=== PATIENT | female | born 1960 | race American Indian/Alaskan Native ===

== ENCOUNTER 2021-08-14 12:22 | Emergency (ER) | payer MEDICARE, MEDICAID, SELFPAY ==
--- NOTE | ~2021-08-14 | US_ITS ---
EXAMINATION: US VENOUS ULTRASOUND WITH DOPPLER LOWER EXTREMITY, BILATERAL CLINICAL INFORMATION: Shortness of breath and leg swelling. COMPARISON: 03/09/2015. TECHNIQUE: Ultrasound of the deep veins is performed from the hip to the calf with compression sonography and color and pulse Doppler assessment. Spectral analysis with color-flow imaging is performed. FINDINGS: RIGHT: There is normal venous compression and respiratory variation and augmented flow. The visualized common femoral vein, superficial femoral vein, profunda femoral vein, popliteal vein, and the trifurcation region shows no evidence of deep venous thrombosis. There is no significant popliteal fossa cyst. LEFT: There is normal venous compression and respiratory variation and augmented flow. The visualized common femoral vein, superficial femoral vein, profunda femoral vein, popliteal vein, and the trifurcation region shows no evidence of deep venous thrombosis. There is no significant popliteal fossa cyst. If the patient's symptoms persist, followup ultrasound in 5 days 7 days might be of value to exclude proximal propagation from a non-visualized calf vein. US/US venous duplex LE BI IMPRESSION: No DVT demonstrated in the bilateral lower extremities.
--- NOTE | ~2021-08-14 | XR_ITS ---
EXAMINATION: PORTABLE CHEST 1 VIEW CLINICAL INFORMATION: sob . COMPARISON: 10/20/2017. TECHNIQUE: Portable frontal view of the chest was obtained. FINDINGS: The lungs are hypoexpanded. Minimal left basilar markings more likely due to atelectasis. Otherwise no focal infiltrate, effusion, edema, or pneumothorax. Cardiac and mediastinal silhouettes are within normal limits for technique. No acute bony abnormality seen. Degenerative changes in the shoulders and spine. XR/XR chest 1V IMPRESSION: Hypoexpanded with basilar markings more likely due to atelectasis. No obvious acute process otherwise.
--- NOTE | ~2021-08-14 | CT_ITS ---
EXAMINATION: CT SOFT TISSUE NECK WITHOUT CONTRAST CLINICAL INFORMATION: Sore throat COMPARISON: None TECHNIQUE: Helical imaging was performed in the axial plane with generation of coronal and sagittal reformatted images. This CT examination was performed using dose optimization techniques as appropriate, variously including the following: *Automated exposure control *Adjustment of mA and/or kV according to patient size (this includes techniques or standardized protocols for targeted exams where dose is matched to indication/reason for exam; i.e. extremities or head) *Use of iterative reconstruction technique DLP: 595 mGy-cm FINDINGS: Limited exam. There are moderate sized abnormal bilateral neck lymph nodes. 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 In addition there is a prominent right level 3 and level 4 lymph nodes. Visualized bilateral parotid, submandibular glands are symmetrical and normal. The thyroid lobes are symmetrical and normal. There is compromise of these cervical esophagus from the retropharyngeal mass. The bony orbits and the optic globe and optic nerve are symmetrical. No intracranial abnormality seen. There is mild mucoperiosteal thickening left maxillary sinus. Rest of the paranasal sinuses are clear. The lung apices are clear. There is reversal of cervical lordosis secondary to retropharyngeal mass. The the oropharynx, oral cavity the adenoids and tonsils appear unremarkable. CT/CT soft tissue neck wo con IMPRESSION: Reversal of cervical lordosis with a moderate size retroperitoneal or pharyngeal mass extending from C3 to T1 vertebra. There is abnormal right neck lymphadenopathy as well. There is a compromise of the cervical esophagus secondary to retropharyngeal mass. Recommend CT neck with IV contrast and better positioning for further evaluation. If clinically indicated MRI can be performed.
--- NOTE | ~2021-08-14 | CT_ITS ---
EXAMINATION: CT ANGIOGRAM OF THE CHEST WITH AND WITHOUT CONTRAST (CT PULMONARY ANGIOGRAM FOR PE) CLINICAL INFORMATION: SOB, chest pain, elevated D-dimer. COMPARISON: None TECHNIQUE: Prior to contrast administration, noncontrast localization images were obtained. Subsequently, multidetector volumetric imaging was performed from the thoracic inlet to below the diaphragms following the administration of 85 mL Omnipaque 350 intravenous contrast. The IV line infiltrated and leaked. Sagittal, coronal, and MIP oblique sagittal reformatted images were obtained on the CT workstation, uploaded to PACS, and reviewed. This CT examination was performed using dose optimization techniques as appropriate, variously including the following: *Automated exposure control *Adjustment of mA and/or kV according to patient size (this includes techniques or standardized protocols for targeted exams where dose is matched to indication/reason for exam; i.e. extremities or head) *Use of iterative reconstruction technique Total exam dose-length product 851 mGy-cm FINDINGS: QUALITY OF STUDY/CONTRAST BOLUS: Suboptimal. PULMONARY ARTERIES: No central pulmonary emboli, however evaluation of the segmental and subsegmental branches is severely limited due to infiltration of the IV line and timing of the contrast bolus. THORACIC AORTA: No aneurysm or dissection. LUNG: No focal consolidation, nodules or masses. There is dependent atelectasis at the bilateral lung bases. There is motion artifact at the lung bases from breathing. PLEURA: No pleural effusion or pneumothorax. MEDIASTINUM: Normal heart size. No pericardial effusion. No hilar or mediastinal lymphadenopathy. No evidence of septal bowing or right heart strain. CHEST WALL/AXILLA: No axillary or internal mammary lymphadenopathy. OSSEOUS STRUCTURES: No acute or suspicious osseous abnormality. UPPER ABDOMEN: Unremarkable. No reflux of contrast into the hepatic veins to suggest elevated right heart pressures. CT/CT angio chest PE protocol IMPRESSION: No central pulmonary embolus. Evaluation of the segmental and subsegmental branches is nondiagnostic due to infiltration of the IV line and timing of the contrast bolus. If concern persists for pulmonary embolism, consider repeat imaging. No consolidation, mass, or nodule. Some mild dependent atelectasis at the lung bases. VTE: indeterminate
--- NOTE | ~2021-08-14 | CT_ITS ---
EXAMINATION: CT ABDOMEN AND PELVIS WITHOUT CONTRAST CLINICAL INFORMATION: Abdominal pain. COMPARISON: None TECHNIQUE: Multidetector volumetric imaging was performed from the superior aspect of the liver through the pubic symphysis. Sagittal and coronal reformatted images were obtained on the technologist's workstation. This CT examination was performed using dose optimization techniques as appropriate, variously including the following: *Automated exposure control *Adjustment of mA and/or kV according to patient size (this includes techniques or standardized protocols for targeted exams where dose is matched to indication/reason for exam; i.e. extremities or head) *Use of iterative reconstruction technique DLP: 806 mGy-cm FINDINGS: LUNG BASES: There is minimal dependent atelectasis and posterior pleural thickening. The heart size is normal. LIVER, GALLBLADDER, AND BILIARY TREE: The liver is normal in size, shape, and attenuation. No focal hepatic lesion or biliary ductal dilatation is present. The gallbladder is unremarkable with no evidence of radiopaque gallstones, gallbladder wall thickening, or obvious pericholecystic inflammatory changes. PANCREAS: Unremarkable. SPLEEN: Unremarkable. ADRENAL GLANDS: Unremarkable. KIDNEYS AND URETERS: The kidneys are normal in size, shape, and attenuation. No hydronephrosis, hydroureter, or calculi seen. No perinephric stranding. There is contrast opacifying bilateral pelvicalyceal system. BLADDER: The bladder is opacified with excreted urinary contrast.. GASTROINTESTINAL TRACT: There is scattered stool and gas seen throughout the colon without significant distention. The small bowel loops are normal caliber. Appendix is unremarkable. No free air or free fluid seen. ABDOMINAL WALL: No significant hernia is appreciated. LYMPH NODES: Normal. VASCULAR: Unremarkable. PELVIC VISCERA: Limited evaluation secondary to bilateral hip prosthesis related artifact. No abnormal lymph nodes seen. OSSEOUS STRUCTURES: Unremarkable CT/CT abdomen pelvis wo con IMPRESSION: No acute intra-abdominal process seen. Bibasilar dependent atelectasis with bilateral posterior pleural thickening. Fleischner guidelines were followed.
[2021-08-14 12:48] VITALS: BP 105/71; PULSE 130; RESP 22; TEMP 38.3; O2SAT 95; BMI 35.4
--- NOTE | 2021-08-14 13:40 | ECG_ITS ---
Test Reason : chestpain Blood Pressure : / mmHG Vent. Rate : 120 BPM Atrial Rate : 120 BPM P-R Int : 134 ms QRS Dur : 076 ms QT Int : 298 ms P-R-T Axes : 056 003 034 degrees QTc Int : 421 ms Sinus tachycardia Otherwise normal ECG When compared with ECG of 09-SEP-2017 14:52, Vent. rate has increased BY 51 BPM Referred By: Karl Coates Electronically Signed By:PERLA JONES MD
[2021-08-14 13:53] LABS: Hematocrit 41.8 % (37.0-47.0); Hemoglobin 14.8 g/dl (12.0-16.0); Mean Corpuscular HGB Conc 35.4 g/dl (31.0-35.0); Mean Corpuscular Hemoglobin 28.2 pg (27.0-33.0); Mean Corpuscular Volume 79.6 fL (80.0-98.0); Mean Platelet Volume 10.7 fL (9.4-12.3); Platelet Count 229 X10*3/uL (160-400); Red Blood Count 5.25 X10*6/uL (4.20-5.50); Red Cell Distribution Width 15.6 % (11.0-16.0)
[2021-08-14 14:00] LABS: D Dimer High Sensitivity 2526 NG/ML
[2021-08-14 14:11] LABS: White Blood Count 51.8 X10*3/uL (4.8-10.8)
[2021-08-14 14:12] LABS: Strep A Nucleic Acid Negative (Negative)
[2021-08-14 14:13] LABS: Alanine Aminotransferase 10 U/L (0-31); Albumin Level 3.8 g/dL (3.5-5.0); Alkaline Phosphatase 110 U/L (39-117); Anion Gap 20 (12-20); Aspartate Amino Transferase 21 U/L (5-31); Bilirubin Direct 0.8 mg/dL (0.0-0.5); Bilirubin Total 1.6 mg/dL (0.0-1.0); Blood Urea Nitrogen 12 mg/dL (9-16); Calcium 9.4 mg/dL (8.4-10.2); Carbon Dioxide 22 mmol/L (22-29); Chloride 101 mmol/L (96-108); Creatinine Clr Calc Pharmacy 73.4; Estimated Glomerular Filt Rate > 60; Glucose Random 87 mg/dL (60-115); Lipase 9 U/L (8-78); Potassium 3.7 mmol/L (3.3-5.1); Sodium 139 mmol/L (135-145); Total Protein 7.2 g/dL (6.5-8.0)
[2021-08-14 14:14] LABS: Lactic Acid 2.2 mmol/L (0.5-2.0)
[2021-08-14 14:15] LABS: Band Neutrophils Percent 24 % (3-5); Lymphocytes Absolute Manual 2.1 X10*3/uL (1.2-4.9); Lymphocytes Percent Manual 4 % (20-40); Monocytes Percent Manual 2 % (2-11); Neutrophils Absolute Manual 48.7 X10*3/uL (2.0-8.3); Neutrophils Percent Manual 70 % (45-73)
[2021-08-14 14:19] LABS: B Type Natriuretic Peptide 129 pg/mL (<100); Microcytosis 1+ (5-14) /OIF; Platelet Estimate NORMAL (NORMAL); Platelet Morphology Comment NORMAL; RBC Morphology NOTED; Troponin-I High Sensitivity 8.7 ng/L (<3.5-17.0)
[2021-08-14 14:20] LABS: Toxic Vacuolation PRESENT
[2021-08-14] MEDS: levoFLOXacin/D5W 750 MG/150 ML PIGGYBACK 100 MG IV (14:44)
[2021-08-14 14:45] LABS: Influenza A PCR NEGATIVE (Negative); Influenza B PCR NEGATIVE (Negative); Resp Syncy Virus RNA Qual PCR NEGATIVE (Negative); SARS COV2 PCR INHOUSE NEGATIVE (Negative)
[2021-08-14] MEDS: iohexoL 350 MG/ML 100 ML INFUS..BTL 70 ML IV (15:37)
--- NOTE | 2021-08-14 15:52 | ED_ITS ---
HPI - General Adult General Chief complaint: Dyspnea Stated complaint: Leg pain/SOB/Sore throat Time Seen by Provider: 08/14/21 13:39 Source: patient Mode of arrival: ambulatory Limitations: no limitations History of Present Illness HPI narrative: 61-year-old female came in for evaluation of having chest pain and shortness of breath. Chest pain started 2 days ago described as constant moderate 7/10 pain in the mid chest with no radiation, pain is causing shortness of breath, patient's symptoms started as a sore throat and change of voice, patient with chronic bilateral lower extremities swelling and edema taking Lasix for that patient never had a diagnosis of congestive heart failure. Patient declined any recent travel, no prolonged immobilization, no subjective fever. No sick contact, patient received her COVID vaccination. Related Data Allergies Allergy/AdvReac Type Severity Reaction Status Date / Time citric acid [CITRIC ACID] Allergy Mild RASH Unverified 02/20/20 16:23 penicillin V Allergy Unknown Verified 07/30/18 00:00 Penicillins [PCN] Allergy Unknown NAUSEA & Unverified 02/20/20 16:23 VOMITING Review of Systems Review of Systems: All other systems are reviewed and are negative Constitutional: Reports as per HPI and Reports no additional constitutional complaints Eyes: Reports as per HPI and Reports no additional eye complaints Reports system reviewed and no additional complaints, except as documented Cardiovascular: Reports as per HPI and Reports no additional cardiovascular complaints Respiratory: Reports as per HPI and Reports no additional respiratory complaints Gastrointestinal: Reports as per HPI and Reports no additional gastrointestinal complaints Genitourinary: Reports no additional female genitourinary complaints Musculoskeletal: Reports no additional musculoskeletal complaints Skin/Breast: Reports system reviewed and no additional complaints, except as docu Psychiatric: Reports no additional psychiatric complaints Endocrine: Reports no additional endocrine complaints Hematologic/Lymphatic: Reports no additional hematologic/lymphatic complaints Allergic/Immunologic: Reports no additional allergic/immunologic complaints Reports system reviewed and no additional complaints, except as documented and Reports Abnormal speech present [facility] Past Medical History Medical History Fluid retention Social History Social History Advance Directives: No Advance Directives Information Provided: No Patient : No Physical Exam ED Vital Signs: Vital Signs - 24 hr 08/14/21 12:48 08/14/21 16:15 Temperature 101 F H Pulse Rate 130 H 127 H Respiratory Rate 22 H 22 H Blood Pressure 105/71 143/89 H Pulse Oximetry 95 93 BMI result Body Mass Index 35.4 Vital signs have been reviewed as appeared to be correct. Blood pressure normal. Tachycardic. Tachypnea. Fever. Oxygen saturation normal. Appearance: Alert. Oriented X3. Mild acute distress. Head: Normal external exam. Normocephalic. Atraumatic. No Crowley signs noted. No raccoon eyes noted Eyes: PERRLA. EOMI. Conjunctiva and sclera normal. Eyelids normal. ENT: TM's Normal. Pharynx normal. Uvula midline. Moist mucous membranes. No trismus noted. No drooling noted. No muffled voice noted. Neck: Normal inspection. Neck supple. FROM. No adenopathy. Thyroid Normal. No meningeal signs. No neck mass noted. CVS: Normal heart rate and rhythm. Heart sound normal. No murmurs noted. Pulses normal throughout. Respiratory: No respiratory distress. Painless inspiration. Breath sounds normal. No wheezes/rales/rhonchi noted. Chest nontender. No accessory muscle usage noted or decreased air movement noted. Abdomen: Soft and nontender. Bowel sounds normal in all 4 quadrants. No distention noted. No organomegaly noted. No visible injury noted. Back: No CVA tenderness. Full range of motion noted. Skin: Skin warm and dry. Normal skin color. Normal skin turgor. No rashes/lesions/lacerations noted. Extremities: No lower extremity edema. Extremities exhibit normal range of motion. Extremities nontender. Neuro: Oriented X 3. Cranial nerve exam: II-XII are grossly intact No motor deficit. No sensory deficit. Reflexes normal. Course Course Course Narrative: Signed out to Dr. Mayberry to check on labs/CT of the chest/UA and dispo patient accordingly likely patient will be admitted Medical Decision Making Lab Data Result diagrams: 08/14/21 13:47 08/14/21 13:47 Labs: Lab Results 08/14/21 08/14/21 08/14/21 Range/Units 13:46 13:46 13:47 WBC 51.8 H* (4.8-10.8) X10*3/uL RBC 5.25 (4.20-5.50) X10*6/uL Hgb 14.8 (12.0-16.0) g/dl Hct 41.8 (37.0-47.0) % MCV 79.6 L (80.0-98.0) fL MCH 28.2 (27.0-33.0) pg MCHC 35.4 H (31.0-35.0) g/dl RDW 15.6 (11.0-16.0) % Plt Count 229 (160-400) X10*3/uL MPV 10.7 (9.4-12.3) fL Immature Gran % (Auto) Cancelled Neut % (Auto) Cancelled Lymph % (Auto) Cancelled Saunders % (Auto) Cancelled Eos % (Auto) Cancelled Baso % (Auto) Cancelled Lymph # (Auto) Cancelled Saunders # (Auto) Cancelled Eos # (Auto) Cancelled Baso # (Auto) Cancelled Abs Immat Gran (auto) Cancelled Absolute Neuts (auto) Cancelled Absolute Nucleated RBC 0.000 (0.0-0.012) X10*3/uL Nucleated RBC % (auto) 0.0 (0.0-0.2) /100WBC Neutrophils % (Manual) 70 (45-73) % Band Neutrophils % 24 H (3-5) % Lymphocytes % (Manual) 4 L (20-40) % Monocytes % (Manual) 2 (2-11) % Abs Neuts (Manual) 48.7 H (2.0-8.3) X10*3/uL Lymphocytes # (Manual) 2.1 (1.2-4.9) X10*3/uL Monocytes # (Manual) 1.0 (0.1-1.2) X10*3/uL Toxic Vacuolation PRESENT Platelet Estimate NORMAL (NORMAL) Plt Morphology Comment NORMAL RBC Morphology NOTED Microcytosis 1+ (5-14) /OIF Smear Tech's Comments Not Reportable D-Dimer High Sensitivty NG/ML Sodium (135-145) mmol/L Potassium (3.3-5.1) mmol/L Chloride (96-108) mmol/L Carbon Dioxide (22-29) mmol/L Anion Gap (12-20) BUN (9-16) mg/dL Creatinine (0.5-1.4) mg/dL Estim Creat Clear Calc Estimated GFR Random Glucose (60-115) mg/dL Lactic Acid (0.5-2.0) mmol/L Calcium (8.4-10.2) mg/dL Total Bilirubin (0.0-1.0) mg/dL Direct Bilirubin (0.0-0.5) mg/dL AST (5-31) U/L ALT (0-31) U/L Alkaline Phosphatase (39-117) U/L Troponin I High Sens (<3.5-17.0) ng/L B-Natriuretic Peptide (<100) pg/mL Total Protein (6.5-8.0) g/dL Albumin (3.5-5.0) g/dL Lipase (8-78) U/L Influenza Type A (PCR) NEGATIVE (Negative) Influenza Type B (PCR) NEGATIVE (Negative) RSV RNA Qual (PCR) NEGATIVE (Negative) SARS-CoV-2 RNA (RT-PCR) NEGATIVE (Negative) S. pyogenes GrpA DOMINIQUE Negative (Negative) 08/14/21 08/14/21 08/14/21 Range/Units 13:47 13:47 13:47 WBC (4.8-10.8) X10*3/uL RBC (4.20-5.50) X10*6/uL Hgb (12.0-16.0) g/dl Hct (37.0-47.0) % MCV (80.0-98.0) fL MCH (27.0-33.0) pg MCHC (31.0-35.0) g/dl RDW (11.0-16.0) % Plt Count (160-400) X10*3/uL MPV (9.4-12.3) fL Immature Gran % (Auto) Neut % (Auto) Lymph % (Auto) Saunders % (Auto) Eos % (Auto) Baso % (Auto) Lymph # (Auto) Saunders # (Auto) Eos # (Auto) Baso # (Auto) Abs Immat Gran (auto) Absolute Neuts (auto) Absolute Nucleated RBC (0.0-0.012) X10*3/uL Nucleated RBC % (auto) (0.0-0.2) /100WBC Neutrophils % (Manual) (45-73) % Band Neutrophils % (3-5) % Lymphocytes % (Manual) (20-40) % Monocytes % (Manual) (2-11) % Abs Neuts (Manual) (2.0-8.3) X10*3/uL Lymphocytes # (Manual) (1.2-4.9) X10*3/uL Monocytes # (Manual) (0.1-1.2) X10*3/uL Toxic Vacuolation Platelet Estimate (NORMAL) Plt Morphology Comment RBC Morphology Microcytosis /OIF Smear Tech's Comments D-Dimer High Sensitivty NG/ML Sodium 139 (135-145) mmol/L Potassium 3.7 (3.3-5.1) mmol/L Chloride 101 (96-108) mmol/L Carbon Dioxide 22 (22-29) mmol/L Anion Gap 20 (12-20) BUN 12 (9-16) mg/dL Creatinine 0.85 (0.5-1.4) mg/dL Estim Creat Clear Calc 73.4 Estimated GFR > 60 Random Glucose 87 (60-115) mg/dL Lactic Acid 2.2 H* (0.5-2.0) mmol/L Calcium 9.4 (8.4-10.2) mg/dL Total Bilirubin 1.6 H (0.0-1.0) mg/dL Direct Bilirubin 0.8 H (0.0-0.5) mg/dL AST 21 (5-31) U/L ALT 10 (0-31) U/L Alkaline Phosphatase 110 (39-117) U/L Troponin I High Sens 8.7 (<3.5-17.0) ng/L B-Natriuretic Peptide 129 H (<100) pg/mL Total Protein 7.2 (6.5-8.0) g/dL Albumin 3.8 (3.5-5.0) g/dL Lipase 9 (8-78) U/L Influenza Type A (PCR) (Negative) Influenza Type B (PCR) (Negative) RSV RNA Qual (PCR) (Negative) SARS-CoV-2 RNA (RT-PCR) (Negative) S. pyogenes GrpA DOMINIQUE (Negative) 08/14/21 Range/Units 13:47 WBC (4.8-10.8) X10*3/uL RBC (4.20-5.50) X10*6/uL Hgb (12.0-16.0) g/dl Hct (37.0-47.0) % MCV (80.0-98.0) fL MCH (27.0-33.0) pg MCHC (31.0-35.0) g/dl RDW (11.0-16.0) % Plt Count (160-400) X10*3/uL MPV (9.4-12.3) fL Immature Gran % (Auto) Neut % (Auto) Lymph % (Auto) Saunders % (Auto) Eos % (Auto) Baso % (Auto) Lymph # (Auto) Saunders # (Auto) Eos # (Auto) Baso # (Auto) Abs Immat Gran (auto) Absolute Neuts (auto) Absolute Nucleated RBC (0.0-0.012) X10*3/uL Nucleated RBC % (auto) (0.0-0.2) /100WBC Neutrophils % (Manual) (45-73) % Band Neutrophils % (3-5) % Lymphocytes % (Manual) (20-40) % Monocytes % (Manual) (2-11) % Abs Neuts (Manual) (2.0-8.3) X10*3/uL Lymphocytes # (Manual) (1.2-4.9) X10*3/uL Monocytes # (Manual) (0.1-1.2) X10*3/uL Toxic Vacuolation Platelet Estimate (NORMAL) Plt Morphology Comment RBC Morphology Microcytosis /OIF Smear Tech's Comments D-Dimer High Sensitivty 2526 NG/ML Sodium (135-145) mmol/L Potassium (3.3-5.1) mmol/L Chloride (96-108) mmol/L Carbon Dioxide (22-29) mmol/L Anion Gap (12-20) BUN (9-16) mg/dL Creatinine (0.5-1.4) mg/dL Estim Creat Clear Calc Estimated GFR Random Glucose (60-115) mg/dL Lactic Acid (0.5-2.0) mmol/L Calcium (8.4-10.2) mg/dL Total Bilirubin (0.0-1.0) mg/dL Direct Bilirubin (0.0-0.5) mg/dL AST (5-31) U/L ALT (0-31) U/L Alkaline Phosphatase (39-117) U/L Troponin I High Sens (<3.5-17.0) ng/L B-Natriuretic Peptide (<100) pg/mL Total Protein (6.5-8.0) g/dL Albumin (3.5-5.0) g/dL Lipase (8-78) U/L Influenza Type A (PCR) (Negative) Influenza Type B (PCR) (Negative) RSV RNA Qual (PCR) (Negative) SARS-CoV-2 RNA (RT-PCR) (Negative) S. pyogenes GrpA DOMINIQUE (Negative) Discharge Plan Discharge Clinical Impression: Chest pain
[2021-08-14 15:59] LABS: Reflex Lactate? Lactic Acid Added
[2021-08-14 16:15] VITALS: BP 143/89; PULSE 127; RESP 22; O2SAT 93
[2021-08-14 17:17] LABS: Appearance Urine HAZY; Color Urine YELLOW; Glucose Urine UA NEG (NEG); Leukocyte Esterase Urine NEG (NEG); Nitrite Urine NEG (NEG); Specific Gravity - Urine 1.015 (1.005-1.025); UACC Culture Trigger NO; Urine Blood 1+ (NEG); Urine Ketones 40 MG/DL (NEG); Urine Protein 2+ MG/DL (NEG-TRACE)
[2021-08-14 17:27] LABS: Bacteria Urine TRACE /LPF; Mucus Urine TRACE /LPF; Squamous Epithelial Cell Urine 1+ /LPF
[2021-08-14 17:41] LABS: ~Lactic Acid-LAB USE ONLY 2.2 mmol/L (0.5-2.0)
[2021-08-14] MEDS: HYDROmorphone HCl 0.5 MG/0.5 ML SYRINGE IVPUSH (17:52)
[2021-08-14 19:08] LABS: Reflex Lactate? 2 Y
[2021-08-14 19:19] VITALS: BP 120/56; PULSE 129; RESP 20; TEMP 38.2; O2SAT 97
[2021-08-14 19:57] LABS: ~Lactic Acid-LAB USE ONLY 1.2 mmol/L (0.5-2.0)
--- NOTE | 2021-08-14 20:45 | PC.NURSE ---
report called to [facility] at this time. spoke to ALEKSANDER escobedo. patient transfered via ambulance at this time. patient in stable condition on departure. patient voice noted to still be horse. patient pain controlled prior to departure, denies any needs. daughter informed of plan.
== END 2021-08-14 21:15 | disposition short-term general hospital (02) ==
PROVIDERS: Emergency Medicine; Emergency Provider Emergency Medicine Emergency Medical Services; PCP Internal Medicine
DX: J39.0 Retropharyngeal and parapharyngeal abscess (principal); R50.9 Fever, unspecified; R06.02 Shortness of breath; Z20.822 Contact with and (suspected) exposure to COVID-19
CPT/HCPCS: 0241U; 36415; 70490; 71045; 71275; 74176; 80048; 80076; 81001; 83605; 83690; 83880; 84484; 85007; 85025; 85027; 85379; 87040; 87651; 93005; 93970; 96361; 96365; 96375; 99284; 99291; J1170; J1956; Q9967

== ENCOUNTER 2023-04-22 13:54 | Emergency (ER) | payer MEDICAID, SELFPAY ==
--- NOTE | ~2023-04-22 | US_ITS ---
EXAMINATION: US PELVIS CLINICAL INFORMATION: Abnormal vaginal bleeding. COMPARISON: CT abdomen pelvis 08/14/2021. TECHNIQUE: Ultrasound of the pelvis is performed using both transabdominal and transvaginal transducers along with Doppler. Transvaginal imaging is performed due to inadequate visualization transabdominally. FINDINGS: Multiple echogenic foci are present within the urinary bladder which demonstrates moderate distention. The uterus measures 4.19 x 2.2 cm x 2.6 cm and is anteverted, anteflexed. The endometrial echo complex is suboptimally visualized but appears to measure 0.2 cm in width. Calcification is present in the region of the cervix resulting in posterior acoustic shadowing partially obscuring visualization of the uterus and endometrial echo complex. There is calcification measures approximately 0.5 mm in width. Partial visualization is made of small quantity of hypoechoic fluid within the endometrial cavity with the fluid collection measuring 1.5 mm in width. The ovaries are not visualized. No free intraperitoneal fluid collections identified. US/US pelvic and transvaginal IMPRESSION: *Suboptimal sonographic evaluation of the uterus secondary to dystrophic calcification the region of the cervix. The calcification is indeterminate in etiology but may represent partial visualization of a lower uterine segment fibroid or dystrophic calcification intrinsic to the cervix. This finding is without a definitive correlate based on contemporaneous review of the 08/14/2021 CT of the abdomen and pelvis. *Small endometrial cavity fluid collection measuring 1.5 mm in width. The endometrium is suboptimally visualized. No gross endometrial thickening or endometrial lesions identified. *The ovaries are not visualized. *Multiple echogenic foci within the urinary bladder which may represent pyuria in the setting of pyelonephritis/cystitis. *Atrophic uterus.
[2023-04-22 14:39] VITALS: BP 118/70; PULSE 81; RESP 18; TEMP 36.7; O2SAT 97; BMI 31.8
--- NOTE | 2023-04-22 14:40 | ED_ITS ---
[facility] - General Adult General Chief complaint: Vaginal Bleeding Stated complaint: vaginal bleeding Time Seen by Provider: 04/22/23 15:54 Source: patient Mode of arrival: ambulatory History of Present Illness HPI narrative: 62-year-old female who presents with 1 week of vaginal bleeding and as per triage note apparently patient stated it was 2 weeks ago that she had the inciting event which was post coital. Patient reports urinary urgency. Related Data Allergies Allergy/AdvReac Type Severity Reaction Status Date / Time citric acid [CITRIC ACID] Allergy Mild RASH Verified 04/22/23 14:43 penicillin V Allergy Unknown Nausea and Verified 04/22/23 14:43 Vomiting Penicillins [PCN] Allergy Unknown NAUSEA & Verified 04/22/23 14:43 VOMITING Review of Systems 2 Review of Systems: Pertinent positives and negatives as stated in [facility] Past Medical History Source: nursing notes reviewed Medical History Fluid retention Social History Social History Smoked in Last 30 Days: No Use of substances other than those prescribed or required for medical reasons: No Advance Directives: No Advance Directives Information Provided: No Physical Exam ED Vital Signs: Vital Signs - 24 hr 04/22/23 14:39 04/22/23 15:28 Temperature 98.0 F Pulse Rate 81 74 Respiratory Rate 18 16 Blood Pressure 118/70 Pulse Oximetry 97 97 Oxygen Delivery Method Room Air Room Air BMI result Body Mass Index 31.8 VITAL SIGNS: Reviewed. GENERAL: Well developed, well nourished, in no acute distress. HEAD: Normocephalic/atraumatic EYES: PERRLA, EOMI EARS: Ext canals without abnormality NOSE: Nares patent bilateral OROPHARYNX: no oral lesions noted, posterior pharynx clear NECK: Supple, no adenopathy LUNGS: Normal breath sounds. No adventitious sounds or accessory muscle use. SpO2<97> CARDIOVASCULAR: Regular rate and rhythm without noted murmurs ABDOMEN: Soft, non-tender, non-distended with bowel sounds. : Pelvic exam demonstrates a trace amount of dark brown fluid within the posterior fornix, despite changing position difficulty with identifying the cervical office but otherwise no gross masses noted within the vaginal vault. MUSCULOSKELETAL: No tenderness, deformities, or effusions noted on gross inspection. EXTREMITIES: No cyanosis, clubbing or edema. SKIN: Inspection of the skin reveals no rashes NEUROLOGIC: Alert and oriented x 4. Strength and sensation to light touch were grossly intact x 4. Course Course Course Narrative: This is an RME: Additional HPI, ROS, PE not included below will be deferred to primary provider. This is a [id number]-female presenting to the ER with complaints of abnormal vaginal bleeding, dysuria. Pt states that initially she had bleeding after intercourse 2 weeks ago. She has now had pelvic pressure. Hx of ?cerivcal cancer as a teenager and went through tx. Last saw OBGYN 5 years ago. LMP at age 51- 52. She is sexually active with 1 partner. Further ER evaluation needed. Plan: UA, Labs, US Medical Decision Making Medical Decision Making [facility] Narrative: 62-year-old female with history and clinical presentation consistent with postmenopausal vaginal bleeding of unclear significance. On pelvic exam there is no gross hemorrhage ongoing. I reviewed all investigations and hematologic indices demonstrate a stress leukocytosis without anemia or thrombocytopenia. Chemistry and sees negative for evidence of TRACY her electrolytes/liver enzyme abnormalities. Urinalysis demonstrates blood contamination from the vaginal vault and do not suspect an acute urinary tract infection. Endometrium is 0.2 cm but ultrasound read is suboptimal and does not clearly indicate suggestion of endometrial thickening, there is equivocal calcifications involving the cervix. All results and findings were discussed with the patient at bedside. 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 Differential Diagnosis Differential Diagnoses: The differential diagnosis associated with the presentation includes Please see the discussion above Admission/Observation Consideration of admission/observation: Escalation of care including admission/observation considered Please see the discussion above Lab Data [facility] Lab Attestation statement: I reviewed the patient's lab results. Please see the discussion above 04/22/23 15:18 04/22/23 15:18 Labs: Lab Results 04/22/23 04/22/23 Range/Units 14:52 15:18 WBC 11.9 H (4.8-10.8) X10*3/uL RBC 4.78 (4.20-5.50) X10*6/uL Hgb 14.0 (12.0-16.0) g/dl Hct 39.5 (37.0-47.0) % MCV 82.6 (80.0-98.0) fL MCH 29.3 (27.0-33.0) pg MCHC 35.4 H (31.0-35.0) g/dl RDW 13.8 (11.0-16.0) % Plt Count 273 (160-400) X10*3/uL MPV 10.2 (9.4-12.3) fL Immature Gran % (Auto) 0.3 (0.0-0.4) % Neut % (Auto) 63.5 (45-73) % Lymph % (Auto) 31.4 (20-40) % [place] % (Auto) 4.0 (2-11) % Eos % (Auto) 0.4 (0-4) % Baso % (Auto) 0.4 (0-2) % Lymph # (Auto) 3.7 (1.2-4.9) X10*3/uL [place] # (Auto) 0.5 (0.1-1.2) X10*3/uL Eos # (Auto) 0.1 (0.0-0.4) X10*3/uL Baso # (Auto) 0.1 (0.0-0.2) X10*3/uL Abs Immat Gran (auto) 0.03 (0.00-0.03) X10*3/uL Absolute Neuts (auto) 7.5 (2.0-8.3) x10*3/uL Absolute Nucleated RBC 0.000 (0.0-0.012) X10*3/uL Nucleated RBC % (auto) 0.0 (0.0-0.2) /100WBC Sodium 141 (135-145) mmol/L Potassium 4.8 D (3.3-5.1) mmol/L Chloride 106 (96-108) mmol/L Carbon Dioxide 29 (22-29) mmol/L Anion Gap 11 L (12-20) BUN 9 (9-16) mg/dL Creatinine 0.90 (0.5-1.4) mg/dL Estim Creat Clear Calc 64.6 Estimated GFR > 60 Random Glucose 108 (60-115) mg/dL Calcium 9.5 (8.4-10.2) mg/dL Total Bilirubin 0.5 (0.0-1.0) mg/dL Direct Bilirubin 0.2 (0.0-0.5) mg/dL AST 23 (5-31) U/L ALT 14 (0-31) U/L Alkaline Phosphatase 76 (39-117) U/L Total Protein 6.9 (6.5-8.0) g/dL Albumin 3.8 (3.5-5.0) g/dL Urine Color Yellow Urine Appearance Cloudy Urine pH 8.5 (5.0-9.0) Ur Specific [place] 1.010 (1.005-1.025) Urine Protein Trace (Neg-Trace) mg/dL Urine Glucose (UA) Negative (Negative) mg/dL Urine Ketones Negative (Negative) mg/dL Urine Blood Trace H (Negative) Urine Nitrite Negative (Negative) Ur Leukocyte Esterase Large (3+) H (Negative) Urine RBC 0-2 (0-2) /HPF Urine WBC >50 H (0-5) /HPF Ur Squamous Epith Cells 6-10 (0-2) /HPF Urine Bacteria 2+ (None Seen) Hyaline Casts 0-2 (0-2) /LPF Radiology Impression Discussion of test interpretation with radiology: I have reviewed the radiologist's reading. Radiologist Impression: Please see the discussion above External Record Review External record reviewed: Outpatient record, Prior outpatient labs and Prior outpatient radiology Discharge Plan Discharge Clinical Impression: Post-menopausal bleeding Patient Disposition: Home, Self-Care Instructions: Dysfunctional Uterine Bleeding (ED) Additional Instructions: 1. 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
[2023-04-22 14:59] LABS: Appearance Urine Cloudy; Color Urine Yellow; Glucose Urine UA Negative (Negative); Leukocyte Esterase Urine Large (3+) (Negative); Nitrite Urine Negative (Negative); PH 8.5 (5.0-9.0); UMIC TRIGGER UACC YES; Urine Blood Trace (Negative); Urine Ketones Negative (Negative); Urine Protein Trace mg/dL (Neg-Trace)
[2023-04-22 15:21] LABS: MANUAL DIFF FLAG NO
[2023-04-22 15:24] LABS: Bacteria Urine 2+ (None Seen); Hyaline Casts Urine 0-2 /LPF (0-2); RBC Urine 0-2 /HPF (0-2); UACC Culture Trigger YES; WBC Urine >50 /HPF (0-5)
[2023-04-22 15:25] LABS: Basophils Absolute Auto 0.1 X10*3/uL (0.0-0.2); Basophils Percent Auto 0.4 % (0-2); Eosinophils Absolute Auto 0.1 X10*3/uL (0.0-0.4); Eosinophils Percent Auto 0.4 % (0-4); Hematocrit 39.5 % (37.0-47.0); Imm Gran Abs Auto 0.03 X10*3/uL (0.00-0.03); Imm Gran Pct Auto 0.3 % (0.0-0.4); Lymphocytes Absolute Auto 3.7 X10*3/uL (1.2-4.9); Lymphocytes Percent Auto 31.4 % (20-40); Mean Corpuscular HGB Conc 35.4 g/dl (31.0-35.0); Mean Corpuscular Hemoglobin 29.3 pg (27.0-33.0); Mean Corpuscular Volume 82.6 fL (80.0-98.0); Mean Platelet Volume 10.2 fL (9.4-12.3); Monocytes Absolute Auto 0.5 X10*3/uL (0.1-1.2); Neutrophils Absolute Auto 7.5 x10*3/uL (2.0-8.3); Neutrophils Percent Auto 63.5 % (45-73); Platelet Count 273 X10*3/uL (160-400); Red Blood Count 4.78 X10*6/uL (4.20-5.50); Red Cell Distribution Width 13.8 % (11.0-16.0); White Blood Count 11.9 X10*3/uL (4.8-10.8)
[2023-04-22 15:28] VITALS: PULSE 74; RESP 16; O2SAT 97
--- NOTE | 2023-04-22 15:31 | PC.NURSE ---
Patient resting on stretcher, respirations even and unlabored, skin pwd, no apparent distress. Patient endorses bright red vaginal bleeding occurring in small amounts every day x1 week. patient also endorses pressure in the vaginal area as well as urinary frequency
[2023-04-22 15:44] LABS: Alanine Aminotransferase 14 U/L (0-31); Albumin Level 3.8 g/dL (3.5-5.0); Alkaline Phosphatase 76 U/L (39-117); Anion Gap 11 (12-20); Aspartate Amino Transferase 23 U/L (5-31); Bilirubin Direct 0.2 mg/dL (0.0-0.5); Bilirubin Total 0.5 mg/dL (0.0-1.0); Blood Urea Nitrogen 9 mg/dL (9-16); Calcium 9.5 mg/dL (8.4-10.2); Carbon Dioxide 29 mmol/L (22-29); Chloride 106 mmol/L (96-108); Creatinine Clr Calc Pharmacy 64.6; Estimated Glomerular Filt Rate > 60; Glucose Random 108 mg/dL (60-115); Potassium 4.8 mmol/L (3.3-5.1); Sodium 141 mmol/L (135-145); Total Protein 6.9 g/dL (6.5-8.0)
[2023-04-22 19:43] VITALS: BP 122/71; PULSE 65; RESP 18; TEMP 36.6; O2SAT 99
--- NOTE | 2023-04-22 19:44 | MHC.EDTECH ---
This tech took over care of patient at 1900,hourly rounds and vitals completed,patient is being discharged at this time.
== END 2023-04-22 19:46 | disposition home or self-care (01) ==
PROVIDERS: Physician Assistant Medical; Emergency Provider Student in an Organized Health Care Education/Training Program; PCP Internal Medicine
DX: N95.0 Postmenopausal bleeding (principal)
CPT/HCPCS: 36415; 76830; 76856; 80048; 80076; 81001; 81003; 85025; 87086; 99284

== ENCOUNTER 2024-03-27 09:33 | Outpatient (AMB) | payer MEDICAID, SELFPAY ==
[2024-03-27 09:46] VITALS: BP 128/71; PULSE 91; O2SAT 98; BMI 33.1
--- NOTE | 2024-03-27 09:46 | MHC.OFFVIS ---
Vital Signs 03/27/24 09:46 Height 5 ft 3 in Weight 187 lb BMI 33.1 BP 128/71 Blood Pressure Location Rt brachial Position Sitting Pulse 91 Pulse Source Pulse Oximeter Pulse Oximetry (%) 98 Oxygen Delivery Method Room Air Intake Visit Reasons: Chronic Pain Allergies citric acid [CITRIC ACID] Allergy (Mild, Verified 03/27/24 09:47) RASH penicillin V Allergy (Unknown, Verified 03/27/24 09:47) Nausea and Vomiting Penicillins [PCN] Allergy (Unknown, Verified 03/27/24 09:47) NAUSEA & VOMITING Medication List - Last Reconciled 03/27/24 by Kateryna Moyer acetaminophen 650 mg PO Q4H PRN cholecalciferol (vitamin D3) 25 mcg PO DAILY diclofenac sodium 1% 2 grams topical QID eplerenone (Inspra) 50 mg PO DAILY fluticasone propionate 50 mcg/actuation (Allergy Relief (fluticasone)) 1 spray intranasal DAILY furosemide 10 mg PO DAILY loperamide 2 mg PO Q4H PRN potassium chloride ER 20 mEq PO DAILY HPI Comments Details: Ash is a very pleasant 63-year-old female who presents to the office today for evaluation and management of her chronic bilateral knee pain She has been suffering with this pain for greater than 10 years. Left pain is worse than the right Denies inciting injury, fall, trauma. Attributes this to osteoarthritis. Currently receives IM Kenalog injections every 4 months from Rheumatology to help with her osteoarthritis. She states once the injection started to wear off the inflammation and pain significantly worsened. Most recent injection was about 1 month ago Completed physical therapy multiple times without improvement. She continues with home exercise program but pain persists. Has had genicular nerve blocks and genicular RFA for both knees. This improved her pain for a couple years but has since returned. Pain today is rated as a 9/10, continuous throughout the day. Worse with walking, moving and weather changes. Improves with heat In terms of muscle damage condition is described as aching, throbbing, pounding Pain is negatively impacting patient's enjoyment of life, general activity, sleeping, ability to perform activities of daily living Patient also complains of bilateral peripheral neuropathy. She is not taking any medications for this. Has tried gabapentin in the past but did not like how it made her feel. Neuropathy is worst at night and often impairs her sleeping. Denies current use of anticoagulants. Denies implantable devices, pacemaker defibrillator Denies current use of nicotine, tobacco, alcohol or illicit substances. [facility] Medical History Fluid retention Review of Systems Const All systems reviewed & are unremarkable except as noted in HPI and below Physical Exam Vital Signs: Last Vital Signs Pulse 91 03/27/24 09:46 BP 128/71 03/27/24 09:46 Pulse Ox 98 03/27/24 09:46 Oxygen Delivery Method Room Air 03/27/24 09:46 BMI result Body Mass Index 33.1 General: awake, alert, oriented. Answers questions appropriately. Fully engaged in examination. Skin: warm, dry, intact HEENT: Normocephalic. Hearing intact. Cardiac: External chest normal in appearance. Respiratory: No cough, audible wheezing or stridor. Abdomen: without gross distension. MS: No obvious swelling or deformities. Right knee: Tender to palpation lateral joint line. Positive crepitus. Decreased range of motion. Left knee: Tender to palpation medial and lateral joint line. Positive crepitus. Decreased range of motion. Neurological: Oriented to person, place, time and situation. Thought process intact. No gait abnormalities appreciated. Psychiatric: Appropriate mood and affect. Good judgment and insight. Assessment & Plan Assessment & Plan (1) Bilateral knee pain: Comment: intractable Code(s): M25.561 - Pain in right knee; M25.562 - Pain in left knee Category: Medical (2) Lower back pain: Code(s): M54.50 - Low back pain, unspecified Category: Medical Plan X-rays ordered for evaluation Patient has exhausted conservative therapy including physical therapy, home exercise program, intramuscular steroid injections, nonsteroidal anti-inflammatory medications, previous attempts at injections and radiofrequency ablation. Discussed options for treatment including diagnostic interventional testing, epidural steroid injections, peripheral nerve stimulation with Sprint, RFA and more permanent neuromodulation. Informational pamphlets provided. Will schedule for ultrasound-guided left saphenous nerve sprint PNS trial. Right saphenous nerve PNS trial will follow 2 weeks after initial procedure. Amitriptyline 10 mg p.o. q.h.s.. Patient advised on cautions for use. All questions and concerns have been answered and patient agrees with the plan. Follow up after procedure, sooner if needed. Orders: Orders XR knee RT 3V Today M25.561 - Pain in right knee, M25.562 - Pain in left knee XR lumbar spine 4V min Today M54.50 - Low back pain, unspecified XR knee LT 3V Today M25.561 - Pain in right knee, M25.562 - Pain in left knee Medications: New amitriptyline 10 mg PO BEDTIME 30 tabs 0RF Coding Level of Care Code New Pt Level 4 (31718) Complex EM visit Add On G2211 Diagnoses Bilateral knee pain M25.561; M25.562 Lower back pain M54.50
== END 2024-03-27 10:22 | disposition home or self-care (01) ==
PROVIDERS: PCP Internal Medicine; Referring Provider Internal Medicine; Visit Provider Registered Nurse Emergency
DX: M25.561 Pain in right knee (principal); M25.562 Pain in left knee; M54.50 Low back pain, unspecified
CPT/HCPCS: 99204

== ENCOUNTER 2024-03-27 09:33 | Outpatient (REF) | payer MEDICAID, SELFPAY | END 2024-03-27 09:34 | disposition home or self-care (01) | LOC: HO.XRAY 09:33 | PROVIDERS: PCP Internal Medicine; Referring Provider Internal Medicine; Visit Provider Registered Nurse Emergency | DX: M25.561 Pain in right knee (principal); M25.562 Pain in left knee; M54.50 Low back pain, unspecified; G89.29 Other chronic pain | CPT/HCPCS: 72110; 73562; 99212 ==

== ENCOUNTER 2024-05-23 06:03 | Outpatient (REF) | payer MEDICAID, SELFPAY | END 2024-05-23 06:04 | disposition home or self-care (01) | LOC: CF 06:03 | PROVIDERS: Visit Provider Internal Medicine | DX: M25.561 Pain in right knee (principal); M25.562 Pain in left knee | CPT/HCPCS: 64555; C1778; J2003 ==

== ENCOUNTER 2024-05-23 10:26 | Outpatient (AMB) | payer MEDICARE, SELFPAY ==
[2024-05-23 10:34] VITALS: BP 116/69; PULSE 81; O2SAT 99
--- NOTE | 2024-05-23 10:34 | A.OFFVIS_ITS ---
Vital Signs 05/23/24 10:34 05/23/24 11:28 BP 116/69 136/86 Blood Pressure Location Rt brachial Rt brachial Position Sitting Sitting Pulse 81 76 Pulse Source Pulse Oximeter Pulse Oximeter Pulse Oximetry (%) 99 99 Oxygen Delivery Method Room Air Room Air Intake Visit Reasons: Right saphenous Sprint Allergies citric acid [CITRIC ACID] Allergy (Mild, Verified 03/27/24 09:47) RASH penicillin V Allergy (Unknown, Verified 03/27/24 09:47) Nausea and Vomiting Penicillins [PCN] Allergy (Unknown, Verified 03/27/24 09:47) NAUSEA & VOMITING HPI HPI Right saphenous Sprint: Details: Patient presents for scheduled procedure. Denies any recent cough, cold, infection, fever or other significant changes in medical history since last office visit. [facility] Medical History Fluid retention Physical Exam Vital Signs: Last Vital Signs Pulse 76 05/23/24 11:28 BP 136/86 05/23/24 11:28 Pulse Ox 99 05/23/24 11:28 Oxygen Delivery Method Room Air 05/23/24 11:28 Office Procedures Details: Peripheral Nerve Stimulation Temporary Lead Placement, Ultrasound-Guided, Saphenous Nerve, LEFT ? After the risks, benefits and alternatives were discussed with the patient and informed consentwas obtained, patient was placed in the supine position and padded to foster comfort. Appropriate skin and bony landmarks were identified, and pertinent vascular structures were located. The skin overlying the needle entry site was prepped and draped in sterile fashion. Ultrasound was used to identify the femoral artery, the femoral vein and the saphenous nerve. After identifying and marking the intended target along the course of the saphenous nerve, the skin around the planned entry point and the subcutaneous tissues were injected with local anesthetic. An introducer needle and stimulating probe were assembled, inserted and advanced along the intended course of the saphenous; nerve, taking care to maintain the proper depth of insertion as the introducer was advanced under ultrasound guidance. The introducer needle was delivered to a location in proximity to the nerve taking care not to puncture the femoral artery or the vein. Multiple stimulation parameters were used to deliver stimulation to the saphenous nerve in concert with stimulating at multiple positions around the nerve. Nerve target acquisition was confirmed noting generation of sensory and mild motor effects (paresthesia, muscle tension, etc) in the medial knee, leg and ankle; corresponding to the distribution of the saphenous nerve. Various electrical parameter combinations were tested, and the lead location was adjusted (physically relocated under ultrasound guidance) until the patient indicated medial knee paresthesia and tension overlapping the distribution of the patient?s typical region of pain. The stimulating probe was removed from the introducer and a percutaneous lead was guided through the needle and delivered to a location in similar proximity to the nerve. Final location was verified with electrical stimulation and documented. The introducer needle was removed, and the exposed end of the percutaneous lead was attached to an external stimulator unit. Various electrical parameter combinations were again tested until the patient indicated paresthesia and muscle tension overlapping the distribution of the patient?s typical region of pain. After confirming that lead impedance was in the normal range, the external unit was detached, the needle was removed, and the lead was anchored at the skin. The lead was threaded into the connector block and electrical continuity and desired patient response was confirmed. The connector block was attached to the external stimulator unit. The site was covered with a sterile occlusive dressing. A final ultrasound image was taken to document final placement. The patient was observed for stability of vital signs and comfort. Sprint PNS Device: Sprint PNS Device [id number] Percutaneous Peripheral Neuroelectrode Procedure: 01588 - Percutaneous Peripheral Neuroelectrode Procedure code (CPT) selection complete Office Meds lidocaine HCl 10 mg/mL (1 %) injection solution Performing Provider: Viji Garcia APRN, CNP Performing Location: [facility] Administered by: Princess Reaves LPN on 05/23/24 11:03 Dose Route Admin Location Dispensed Lot Number Expiration Date [facility] Analysis Reporting Developer 5 mL subcut 5 mL Assessment & Plan Assessment & Plan (1) Bilateral knee pain: Comment: intractable Code(s): M25.561 - Pain in right knee; M25.562 - Pain in left knee Category: Medical Plan Patient is status post temporary left saphenous nerve stimulator placement. Patient tolerated procedure well and was discharged home in stable condition with discharge instructions. All questions were answered. We will follow-up via telephone or in clinic to assess response to therapy. A follow-up appointment was made during today's visit. Orders: Orders US guide needle placement Today M25.561 - Pain in right knee, M25.562 - Pain in left knee AMB Sprint PNS Today M25.561 - Pain in right knee, M25.562 - Pain in left knee Coding Level of Care Code Procedure Only Diagnoses Bilateral knee pain M25.561; M25.562 CPT Codes Sprint PNS - Sprint PNS Device: Sprint PNS Device ([id number]) Sprint PNS - SPRINT: 65334 - Percutaneous Peripheral Neuroelectrode ([id number]) Implantable Device Implantable Device Implantable Devices Qty Analysis Reporting Developer Implant Date Expiration Date Analgesic PENS system 1 [employer] 05/23/24 04/10/25
[2024-05-23 11:28] VITALS: BP 136/86; PULSE 76; O2SAT 99
== END 2024-05-23 12:51 | disposition home or self-care (01) ==
LOC: HO.PMCPRC 10:26
PROVIDERS: PCP Internal Medicine; Visit Provider Internal Medicine
DX: M25.561 Pain in right knee (principal); M25.562 Pain in left knee
CPT/HCPCS: 64555

== ENCOUNTER 2024-05-30 11:22 | Outpatient (AMB) | payer MEDICARE, MEDICAID, SELFPAY ==
[2024-05-30 11:34] VITALS: BP 131/71; PULSE 92; O2SAT 96; BMI 34.5
--- NOTE | 2024-05-30 11:34 | MHC.OFFVIS ---
Vital Signs 05/30/24 11:34 Height 5 ft 3 in Weight 195 lb BMI 34.5 BP 131/71 Blood Pressure Location Lt brachial Position Sitting Pulse 92 Pulse Source Pulse Oximeter Pulse Oximetry (%) 96 Oxygen Delivery Method Room Air Intake Visit Reasons: s/p right saphenous Sprint/Sprint Removal Allergies citric acid [CITRIC ACID] Allergy (Mild, Verified 05/30/24 11:36) RASH penicillin V Allergy (Unknown, Verified 05/30/24 11:36) Nausea and Vomiting Penicillins [PCN] Allergy (Unknown, Verified 05/30/24 11:36) NAUSEA & VOMITING Medication List - Last Reconciled 05/30/24 by Tamiko Self, HEAD OF MARKETING ANALYTICS acetaminophen 650 mg PO Q4H PRN cholecalciferol (vitamin D3) 25 mcg PO DAILY diclofenac sodium 1% 2 grams topical QID duloxetine 20 mg PO BID eplerenone (Inspra) 50 mg PO DAILY fluticasone propionate 50 mcg/actuation (Allergy Relief (fluticasone)) 1 spray intranasal DAILY furosemide 10 mg PO DAILY loperamide 2 mg PO Q4H PRN potassium chloride ER 20 mEq PO DAILY HPI Comments Details: Patient presents back to the office today for follow-up, one-week status post left saphenous nerve sprint PNS placement with Dr. Shafer Pain today is rated as a 9/10. She is tolerating the device well though she is not comfortable with it. She states that she is too active does not feel like this devices for her. Requesting that the sprint be pulled today. She would like to consider genicular nerve blocks/radiofrequency ablation for bilateral knee pain Prior: Ash is a very pleasant 63-year-old female who presents to the office today for evaluation and management of her chronic bilateral knee pain She has been suffering with this pain for greater than 10 years. Left pain is worse than the right Denies inciting injury, fall, trauma. Attributes this to osteoarthritis. Currently receives IM Kenalog injections every 4 months from Rheumatology to help with her osteoarthritis. She states once the injection started to wear off the inflammation and pain significantly worsened. Most recent injection was about 1 month ago Completed physical therapy multiple times without improvement. She continues with home exercise program but pain persists. Has had genicular nerve blocks and genicular RFA for both knees. This improved her pain for a couple years but has since returned. Pain today is rated as a 9/10, continuous throughout the day. Worse with walking, moving and weather changes. Improves with heat In terms of muscle damage condition is described as aching, throbbing, pounding Pain is negatively impacting patient's enjoyment of life, general activity, sleeping, ability to perform activities of daily living Patient also complains of bilateral peripheral neuropathy. She is not taking any medications for this. Has tried gabapentin in the past but did not like how it made her feel. Neuropathy is worst at night and often impairs her sleeping. Denies current use of anticoagulants. Denies implantable devices, pacemaker defibrillator Denies current use of nicotine, tobacco, alcohol or illicit substances. FORMERLY [facility], [facility]–1983 Medical History Fluid retention Review of Systems Const All systems reviewed & are unremarkable except as noted in HPI and below Physical Exam Vital Signs: Last Vital Signs Pulse 92 05/30/24 11:34 BP 131/71 05/30/24 11:34 Pulse Ox 96 05/30/24 11:34 Oxygen Delivery Method Room Air 05/30/24 11:34 BMI result Body Mass Index 34.5 General: awake, alert, oriented. Answers questions appropriately. Fully engaged in examination. Skin: warm, dry, intact HEENT: Normocephalic. Hearing intact. Cardiac: External chest normal in appearance. Respiratory: No cough, audible wheezing or stridor. Abdomen: without gross distension. MS: No obvious swelling or deformities. Neurological: Oriented to person, place, time and situation. Thought process intact. No gait abnormalities appreciated. Psychiatric: Appropriate mood and affect. Good judgment and insight. Sprint removal: Dressing removed, Site dry, clean, intact. Area cleansed with chloraprep, lead removed with intact tip. Area cleansed again with chloraprep, bacitracin dressing with tegaderm applied. Patient tolerated removal well. Results Reviewed Results Reviewed: 03/2024 XR/XR knee RT 3V FINDINGS: No fracture or joint effusion. Alignment is anatomic. Joint spaces are moderately narrowed with bony spurring, greatest in the patellofemoral and lateral compartment. No abnormal soft tissue calcification. IMPRESSION: Moderate degenerative change in the right knee. 03/2024 XR/XR knee LT 3V FINDINGS: No fracture or joint effusion. Alignment is anatomic. Advanced degenerative changes in the lateral compartment with complete cartilage space loss, subchondral sclerosis and bulky spurring. Moderate degenerative change in the patellofemoral and medial compartment. No abnormal soft tissue calcification. IMPRESSION: Advanced degenerative changes in the left knee, greatest in the lateral compartment. Assessment & Plan Assessment & Plan (1) Bilateral knee pain: Comment: intractable Code(s): M25.561 - Pain in right knee; M25.562 - Pain in left knee Category: Medical (2) Lower back pain: Code(s): M54.50 - Low back pain, unspecified Category: Medical Plan X-rays reviewed, results as per above Sprint PNS device discontinued. Lead pulled, as per above. Patient tolerated well. Patient has exhausted conservative therapy including physical therapy, home exercise program, intramuscular steroid injections, nonsteroidal anti-inflammatory medications, previous attempts at injections and radiofrequency ablation. Discussed options for treatment including diagnostic interventional testing, epidural steroid injections, peripheral nerve stimulation with Sprint, RFA and more permanent neuromodulation. Informational pamphlets provided. Will schedule for bilateral diagnostic genicular nerve block with fluoroscopy guidance under local anesthetic. Will start with left knee, right knee to follow in 1-2 weeks. If good results will plan for bilateral genicular nerve radiofrequency ablation. All questions and concerns were answered, patient agrees to the plan. Follow up after diagnostic injection, sooner if needed Coding Level of Care Code Est Pt Level 3 (72773) Complex EM visit Add On G2211 Diagnoses Bilateral knee pain M25.561; M25.562 Lower back pain M54.50
== END 2024-05-30 12:15 | disposition home or self-care (01) ==
PROVIDERS: PCP Internal Medicine; Visit Provider Registered Nurse Emergency
DX: M25.561 Pain in right knee (principal); M25.562 Pain in left knee; M54.50 Low back pain, unspecified
CPT/HCPCS: 99024

== ENCOUNTER → 2024-05-30 11:22 | Outpatient (BNVA) | payer MEDICARE, SELFPAY | PROVIDERS: PCP Internal Medicine; Visit Provider Registered Nurse Emergency | DX: M25.561 Pain in right knee (principal); M25.562 Pain in left knee; M54.50 Low back pain, unspecified; Z45.42 Encounter for adjustment and management of neurostimulator | CPT/HCPCS: 99212 ==

== ENCOUNTER 2024-06-06 07:35 | Outpatient (REF) | payer MEDICARE, MEDICAID, SELFPAY | END 2024-06-06 07:36 | disposition home or self-care (01) | LOC: CF 07:35 | PROVIDERS: Visit Provider Internal Medicine | DX: M25.562 Pain in left knee (principal); M25.561 Pain in right knee | CPT/HCPCS: 64454; J2795 ==

== ENCOUNTER 2024-06-06 10:53 | Outpatient (AMB) | payer MEDICARE, MEDICAID, SELFPAY ==
--- NOTE | 2024-06-06 10:55 | MHC.OFFVIS ---
Vital Signs 06/06/24 10:59 06/06/24 11:13 BP 136/73 106/76 Blood Pressure Location Lt brachial Lt brachial Position Sitting Sitting Pulse 83 74 Pulse Source Pulse Oximeter Pulse Oximeter Pulse Oximetry (%) 97 97 Oxygen Delivery Method Room Air Room Air Intake Visit Reasons: Left Dx GNB Allergies citric acid [CITRIC ACID] Allergy (Mild, Verified 05/30/24 11:36) RASH penicillin V Allergy (Unknown, Verified 05/30/24 11:36) Nausea and Vomiting Penicillins [PCN] Allergy (Unknown, Verified 05/30/24 11:36) NAUSEA & VOMITING HPI HPI Left Dx GNB: Details: Patient presents for scheduled procedure. Denies any recent cough, cold, infection, fever or other significant changes in medical history since last office visit. [facility] Medical History Fluid retention Physical Exam Vital Signs: Last Vital Signs Pulse 74 06/06/24 11:13 BP 106/76 06/06/24 11:13 Pulse Ox 97 06/06/24 11:13 Oxygen Delivery Method Room Air 06/06/24 11:13 Office Procedures Nerve Block Details: Superior medial, superior lateral, and inferior medial genicular nerves block, Left - Ultrasound Guided After obtaining written consent, pre-procedure blood pressure and heart rate were stable and recorded in the nursing record. The patient was placed supine on the table. The area overlying the peripheral nerves was widely prepped with chloraprep and allowed to dry. Using ultrasound, the appropriate landmarks were identified. A 25 gauge 1.5 inch hypodermic needle was advanced under ultrasound guidance to the appropriate landmark of each peripheral nerve. Aspiration was negative for heme and synovial fluid. 2 cc of bupivacaine 0.5% was injected around each targeted nerve. The needle was removed, skin cleansed and a sterile bandage was applied. The patient tolerated the procedure well and no complications were encountered. Following the procedure the patient's vital signs were stable. The patient was discharged home in good condition with post-procedural instructions. Time Out: Immediately prior to the procedure, the following was verbally confirmed that there is a signed consent form and that the correct patient, planned procedure, site and side are consistent with documentation and that necessary equipment and/or blood products are available prior to the start of the case. Ultrasound images were saved to the patient's record. Complications: none EBL: <5 cc [id number] Nerve Block Procedure code (CPT) selection complete Assessment & Plan Assessment & Plan (1) Bilateral knee pain: Comment: intractable Code(s): M25.561 - Pain in right knee; M25.562 - Pain in left knee Category: Medical Plan Patient is status post right genicular nerve blocks under ultrasound guidance. Patient tolerated procedure well and was discharged home in stable condition with discharge instructions. All questions were answered. We will follow-up via telephone or in clinic to assess response to therapy. A follow-up appointment was made during today's visit. Orders: Orders US guide needle placement Today M25.561 - Pain in right knee, M25.562 - Pain in left knee Coding Level of Care Code Procedure Only Diagnoses Bilateral knee pain M25.561; M25.562 CPT Codes Nerve Block - Nerve Block: [id number] Nerve Block ([id number])
[2024-06-06 10:59] VITALS: BP 136/73; PULSE 83; O2SAT 97
[2024-06-06 11:13] VITALS: BP 106/76; PULSE 74; O2SAT 97
== END 2024-06-06 11:17 | disposition home or self-care (01) ==
LOC: HO.PMCPRC 10:53
PROVIDERS: PCP Internal Medicine; Visit Provider Internal Medicine
DX: M25.562 Pain in left knee (principal)
CPT/HCPCS: 64454

== ENCOUNTER 2024-06-13 06:20 | Outpatient (REF) | payer MEDICARE, MEDICAID, SELFPAY | END 2024-06-13 06:21 | disposition home or self-care (01) | LOC: CF 06:20 | PROVIDERS: Visit Provider Internal Medicine | DX: Z13.89 Encounter for screening for other disorder (principal) ==

== ENCOUNTER 2024-07-04 06:31 | Outpatient (REF) | payer MEDICARE, MEDICAID, SELFPAY ==
--- OUTSIDE RECORDS SUMMARY | 2024-07-04 06:32 | XMS_ITS | Clinical Summary ---
Author Organization [facility] Address [address] [place] [address] Care Team Providers Care Quality Control Supervisor Name Role Phone Isak Enrique Primary Care Provider [phone] Allergies Active Allergy Reactions Criticality Noted Date Comments Other Other (see comments) 09/10/2021 [place] allergy leading to skin irritation Penicillins Nausea 08/14/2021 Tolerated piperacillin/tazobactam 08/15/21 Medications furosemide (LASIX) 40 mg tablet Take 80 mg by mouth 2 times a day. Active eplerenone (INSPRA) 25 mg tablet Take 50 mg by mouth once a day. Active acetaminophen (TYLENOL) 500 mg tablet Take 500 mg by mouth every 6 hours as needed for pain. Active loperamide (IMODIUM) 2 mg capsule Take 2 mg by mouth 4 times a day as needed for diarrhea. Active ammonium lactate (LAC-HYDRIN) 12% lotion Apply topically to the affected area as needed for dry skin. Active potassium chloride ER (MICRO-K) 10 mEq capsule Take 20 mEq by mouth once a day. Active Active Problems Problem Noted Date Diagnosed Date Dysphagia 08/21/2021 Assessment & Plan (08/22/2021 1:05 PM EDT): Patient with retropharyngeal abscess. Initially NPO then passed CONSUMER LOAN SPECIALIST for pureed diet on 08/20. - TBW CONSUMER LOAN SPECIALIST to advance diet - trial of adult regular diet, soft on 08/22 Hypertension 08/21/2021 Assessment & Plan (08/21/2021 6:28 PM EDT): Patient on home Eplerenone 25 mg daily and furosemide 80 mg BID, both of which were held on admission. She was started on amlodipine instead on transfer to the floor. TTE 08/15/21 with EF 61%, normal systolic/diastolic function, normal valves. - Continue amlodipine 5 mg daily - Transition back to home eplerenone 25 mg daily and furosemide 80 mg BID on discharge Chronic diarrhea 08/21/2021 Assessment & Plan (08/21/2021 6:29 PM EDT): Patient with chronic diarrhea on loperamide 2 mg 4 times a day PRN. - Continue home loperamide PRN Retropharyngeal abscess 08/15/2021 Assessment & Plan (08/22/2021 1:05 PM EDT): History of dental/gum issues of unclear nature and chronicity. Presented w/ 2wks progressive odynophagia, dysphonia, fevers. Covid and strep negative 1 week MARKET NEWS REPORTER at PCP. CT imaging findings of??C3-T1 8.1 x 3.7cm retropharyngeal abscess??with phlegmon extension within the posterior mediastinum to the level of the aortic arch. Taken to the OR 08/15 by ENT for fiberoptic laryngoscopy??with findings of narrow but patent airway, diffuse hypopharyngeal swelling on right, no intervention performed.??Admitted to ICU for medical mng and airway watch.??08/19 Bedside laryngoscopy w/ worsening R pharyngeal wall edema and less R vocal cord movement.??Repeat CT chest/soft tissue face with No interval change in 2.5 x 1.6 cm collection located above the azygos vein posterior lateral to the trachea on the right, measuring 43 Hounsfield units and likely reflecting phlegmon/soft tissue inflammation...Further decrease in retropharyngeal fluid and fluid in the deep soft tissues of the neck. No discrete drainable collection is identified. - Zosyn (08/15-08/22) - S/p Vancomycin (08/15-08/17) - S/p Airway watch - Thoracic surgery: No intervention at this time; signed off - ENT: Following and rec??no steroids as may mask condition and cont abx. Hypokalemia 08/15/2021 Assessment & Plan (08/21/2021 6:24 PM EDT): Patient with intermittent hypokalemia. Supplemented as needed. Leukocytosis 08/15/2021 Immunizations Name Administration Dates Next Due Covid-19 Monovalent Vaccine, Moderna, mRNA, PF 04/28/2021,09/04/2020,08/07/2020 Influenza trivalent, PF MDCK (FLUCELVAX) vaccine 0.5 mL IM (for age 6 mo and older) 03/03/2015 Influenza, Injectable, Quadr ivalent, Preservative Free 02/19/2020 Influenza, Trivalent, MDV, Injectable ,02/19/2020,02/26/2019,04/09,05/12/2017,04/05/2016,03/03/2015 ,05/17/2010 Pneumococcal Polysaccharide Vaccine, 23 Valent 05/04/2014 Td(Adult) Unspecified Formulation 06/05/2004 Tetanus Toxoid, Reduced Diph theria Toxoid, and Acellular Pertussis Vaccine, Adsorbed 06/24/2014 Social History Tobacco Use Types Packs/Day Years Used Date Smoking Tobacco: Never Smokeless Tobacco: Never Alcohol Use Standard Drinks/Week Comments Never 0 (1 standard drink = 0.6 oz pur e alcohol) Comments No Sex and Gender Information Value Date Recorded Sex Assigned at Not on file Legal Sex Female 8:36 PM EST Gender Identity Not on file Sexual Orientation Not on file Last Filed Vital Signs Vital Sign Reading Time Taken Comments Blood Pressure 101/73 08/23/2021 5:59 AM EDT Pulse 88 08/23/2021 5:59 AM EDT Temperature 36.8 ??C (98.2 ??F) 08/23/2021 5:59 AM ED T Respiratory Rate 18 08/23/2021 5:59 AM EDT Oxygen Saturation 97% 08/23/2021 5:59 AM EDT Inhaled Oxygen Concentration - - Weight 93.9 kg (207 lb 0.2 oz) 08/22/2021 5:42 A M EDT Height 160 cm (5' 2.99 ) 08/15/2021 12:00 PM EDT Body Mass Index 36.68 08/15/2021 12:00 PM EDT Plan of Treatment Health Maintenance Due Date Last Done Comments Cervical Cancer Screening 1959 Cologuard 1959 Colon Cancer Screening 1959 Colonoscopy 1959 FOBT / Fit Test 1959 HIV Screening 1959 HPV and Pap Smear 1959 Hepatitis C Screening 1959 Pap Smear 1959 Sigmoidoscopy 1959 Mammogram 1999 Osteoporosis Screening 2009 Zoster Vaccines (1 of 2) 2009 Basic Metabolic Panel 08/23/2022 08/23/2021 , 08/22/2021, 08/20/2021, Additional history exists COVID-19 Vaccine ( season) 2024 04/28/2021, 09/04/2020, 08/07/2020 Influenza Vaccine (#1) 2024 , 02/19/2020, 02/19/2020, Additional history exists Pneumococcal Vaccine: 65+ Years (2 of 2 - PCV) 2024 05/04/2014 Alcohol/Substance Use Screening 06/05/2024 Depression Screening and Follow-Up 06/05/2024 Health Care Proxy Review 06/05/2024 Social Drivers of Health Annual Screening 06/05/2024 DTaP,Tdap,and Td Vaccines (2 - Td or Tdap) 06/24/2024 06/24/2014, 06/05/2004 RSV Vaccine (60+ years old and patients) (1 - 1-dose 75+ series) 2034 Hepatitis B Vaccines Aged Out No long er eligible based on patient's age to complete this topic Procedures * Due to [place] law, this organization might not be sharing negative HIV tests. Procedure Name Priority Date/Time Associated Diagnosis Comments BASIC METABOLIC PANEL Routine 08/23/2021 6:43 AM EDT from Last 3 Months or Most Recently Relevant to Health Maintenance Results * Due to [place] law, this organization might not be sharing negative HIV tests. * (ABNORMAL) Basic Metabolic Panel (08/23/2021 6:43 AM EDT) NA 141 135 - 145 mmol/L 08/23/2021 8:26 AM EDT [facility] K 4.1 3.5 - 5.3 mmol/L 08/23/2021 8:26 AM EDT [facility] Cl 109 97 - 110 mmol/L 08/23/2021 8:26 AM EDT [facility] CO2 23(L) 24 - 32 mmol/L 08/23/2021 8:26 AM EDT [facility] BUN 5(L) 7 - 23 mg/dL 08/23/2021 8:26 AM EDT [facility] Creatinine 0.48(L) 0.50 - 1.20 mg/dL 08/23/2021 8:26 AM EDT [facility] Glucose 77 70 - 99 mg/dL 08/23/2021 8:26 AM EDT [facility] Calcium 8.0(L) 8.7 - 10.7 mg/dL 08/23/2021 8:26 AM EDT [facility] Anion Gap 9 5 - 15 08/23/2021 8:26 AM EDT [facility] eGFR >90 >=90 mL/min/1. 73m2 08/23/2021 8:26 AM EDT [facility] Comment: Estimated Glomerular Filtration Rate (GFR) calculated using the CKD-EPI refit equation. The different stages of CKD form a continuum. The stages of CKD are classified as follows : Stage 1: Kidney damage with normal or increased GFR (>90 mL/min/1.73 m2) Stage 2: Mild reduction in GFR (60-89 mL/min/1.73 m2) Stage 3a: Moderate reduction in GFR (45-59 mL/min/1.73 m2) Stage 3b: Moderate reduction in GFR (30-44 mL/min/1.73 m2) Stage 4: Severe reduction in GFR (15-29 mL/min/1.73 m2) Stage 5: Kidney failure (GFR < 15 mL/min/1.73 m2 or dialysis) Blood Structure of peripheral vein / Unknown Venipuncture / Unknown 08/23/2021 6:43 AM EDT 08/23/2021 7:43 AM EDT Camilo León MD LAB BLOOD ORDERABLES Final Result [facility] [address] [place] [address], from Last 3 Months or Most Recently Relevant to Health Maintenance Insurance [facility] Advance Directives Documents on File Type Date Recorded Patient Ethnology Professor Expl anation Health Care Proxy 08/17/2021 5:10 PM 08-17 Health Care Proxy 08/17/2021 1:21 PM 08-17 Health Care Proxy 08/17/2021 9:33 AM 08-15 * Full Code (Latest Code Status on File) Date Activated Date Inactivated Comments 08/15/2021 11:09 AM 08/23/2021 9:11 PM * Presumed Full Code Date Activated Date Inactivated Comments 08/15/2021 7:50 AM 08/15/2021 11:09 AM Care Teams Quality Control Supervisor Relationship Specialty Start Date End Date Isak Enrique [address] [place] [address] PCP - General Internal Medicine 08/15/21
--- OUTSIDE RECORDS SUMMARY | 2024-07-04 06:32 | XMS_ITS | Referral Summary ---
Author Organization [facility] Address [address] [place] [address] Care Team Providers Care Card Assembler Name Role Phone Isak Enrique Primary Care Provider [phone] Allergies Active Allergy Reactions Criticality Noted Date Comments Other Other (see comments) 09/10/2021 [place] allergy leading to skin irritation Penicillins Nausea [...] with retropharyngeal abscess. Initially NPO then passed GM MOBILE for pureed diet on 08/20. - TBW [employer]LE to advance diet - trial of adult [...] fevers. Covid and strep negative 1 week SUPERVISOR SLATE SPLITTING at PCP. CT imaging findings of??C3-T1 8.1 [...] 08/15/2021 12:00 PM EDT Plan of Treatment Not on file Procedures * Due to [place] Live[employer] law, this organization might not be sharing negative HIV tests. Procedure Name Priority Date/Time Associated Diagnosis Comments BASIC METABOLIC PANEL Routine 08/23/2021 6:43 AM EDT from Last 3 Months or Most Recently Relevant to Health Maintenance Results * Due to [facility] law, this organization might not be sharing negative HIV tests. * (ABNORMAL) Basic Metabolic Panel (08/23/2021 6:43 AM EDT) NA 141 135 - 145 mmol/L 08/23/2021 8:26 AM EDT [facility] K 4.1 3.5 - 5.3 mmol/L 08/23/2021 8:26 AM EDT [facility] Cl 109 97 - 110 mmol/L 08/23/2021 8:26 AM EDT [facility] CO2 23(L) 24 - 32 mmol/L 08/23/2021 8:26 AM EDT [facility] BUN 5(L) 7 - 23 mg/dL 08/23/2021 8:26 AM EDT [facility] Creatinine 0.48(L) 0.50 - 1.20 mg/dL 08/23/2021 8:26 AM EDT [facility] Glucose 77 70 - 99 mg/dL 08/23/2021 8:26 AM EDT [facility] Calcium 8.0(L) 8.7 - 10.7 mg/dL 08/23/2021 8:26 AM EDT [facility] Anion Gap 9 5 - 15 08/23/2021 8:26 AM EDT [facility] eGFR >90 >=90 mL/min/1. 73m2 08/23/2021 8:26 AM EDT [facility] Comment: Estimated Glomerular Filtration [...] 6:43 AM EDT 08/23/2021 7:43 AM EDT us Camilo León MD LAB BLOOD ORDERABLES Final Result [facility] [address] [place] [address], from Last 3 Months or Most Recently Relevant to Health Maintenance Insurance [facility] [place] [id number] Advance Directives Documents on File Type Date Recorded Patient Direct Mail Coordinator Expl anation Health Care Proxy 08/17/2021 5:10 PM 08-17 Health Care Proxy 08/17/2021 1:21 PM 08-17 Health Care Proxy 08/17/2021 9:33 AM 08-15 * Full Code (Latest Code Status on File) Date Activated Date Inactivated Comments 08/15/2021 11:09 AM 08/23/2021 9:11 PM * Presumed Full Code Date Activated Date Inactivated Comments 08/15/2021 7:50 AM 08/15/2021 11:09 AM Care Teams Card Assembler Relationship Specialty Start Date End Date Isak Enrique [address] [place] [address] PCP - General Internal Medicine 08/15/21
--- OUTSIDE RECORDS SUMMARY | 2024-07-04 06:32 | XMS_ITS | Clinical Summary ---
Author Organization [facility] Address [address] [place] [address] Care Team Providers Care Simulation Technician Name Role Phone Unavailable Primary Care Provider Unavailabl e Source Comments PLEASE NOTE, if this patient is a minor, it may be UNLAWFUL to discuss sensitive information that is contained in these records (such as FAMILY PLANNING, MENTAL HEALTH or SUBSTANCE ABUSE) with the minor patient's parent or other person without the patient's specific authorization.[facility] Social History Tobacco Use Types Packs/Day Years Used Date Smoking Tobacco: Never Assessed Social Connections Answer Date Recorded Connectedness 0 02/15/2024 Financial Resource Strain Answer Date R ecorded Financial Resource Strain 0 2020 Stress Answer Date Recorded Stress 0 02/27/2021 Physical Activity Answer Date Recorded Physical Activity 0 02/27/2021 Food Insecurity Answer Date Recorded Food 0 02/29/2024 Transportation Needs Answer Date Record ed Transportation 0 02/27/2021 Housing Stability Answer Date Recorded Housing 0 02/27/2021 Safety and Environment Answer Date Yobani rded Safety 0 02/27/2021 Utilities Answer Date Recorded Utilities 0 02/27/2021 Employment Answer Date Recorded Stress 0 02/15/2024 Comments Unknown Sex and Gender Information Value Date Recorded Sex Assigned at Not on file Legal Sex Female 9:28 AM PDT Gender Identity Not on file Sexual Orientation Not on file Plan of Treatment Not on file Insurance [facility] [place] [id number]
== END 2024-07-04 06:32 | disposition home or self-care (01) ==
LOC: CF 06:31
PROVIDERS: Visit Provider Internal Medicine
DX: M25.562 Pain in left knee (principal)
CPT/HCPCS: 64454; J2795

== ENCOUNTER 2024-07-04 10:20 | Outpatient (AMB) | payer MEDICARE, MEDICAID, SELFPAY ==
--- NOTE | 2024-07-04 10:52 | MHC.OFFVIS ---
Vital Signs 07/04/24 10:53 Height 5 ft 3 in Weight 195 lb BMI 34.5 BP 117/77 Blood Pressure Location Rt brachial Position Sitting Pulse 92 Pulse Source Pulse Oximeter Pulse Oximetry (%) 97 Oxygen Delivery Method Room Air Intake Visit Reasons: Left Dx GNB Pharmacist In Charge Required: No Allergies citric acid [CITRIC ACID] Allergy (Mild, Verified 07/04/24 10:52) RASH penicillin V Allergy (Unknown, Verified 07/04/24 10:52) Nausea and Vomiting Penicillins [PCN] Allergy (Unknown, Verified 07/04/24 10:52) NAUSEA & VOMITING Medication List - Last Reconciled 07/04/24 by Tamiko Self, OUTREACH ASSISTANT acetaminophen 650 mg PO Q4H PRN cholecalciferol (vitamin D3) 25 mcg PO DAILY diclofenac sodium 1% 2 grams topical QID duloxetine 20 mg PO BID eplerenone (Inspra) 50 mg PO DAILY fluticasone propionate 50 mcg/actuation (Allergy Relief (fluticasone)) 1 spray intranasal DAILY furosemide 10 mg PO DAILY loperamide 2 mg PO Q4H PRN potassium chloride ER 20 mEq PO DAILY HPI HPI Left Dx GNB: Details: Patient presents for scheduled procedure. Denies any recent cough, cold, infection, fever or other significant changes in medical history since last office visit. Superior medial, superior lateral, and inferior medial genicular nerves block, Left - Ultrasound Guided After obtaining written consent, pre-procedure blood pressure and heart rate were stable and recorded in the nursing record. The patient was placed supine on the table. The area overlying the peripheral nerves was widely prepped with chloraprep and allowed to dry. Using ultrasound, the appropriate landmarks were identified. A 25 gauge 1.5 inch hypodermic needle was advanced under ultrasound guidance to the appropriate landmark of each peripheral nerve. Aspiration was negative for heme and synovial fluid. 2 cc of ropivacaine 0.5% was injected around each targeted nerve. The needle was removed, skin cleansed and a sterile bandage was applied. The patient tolerated the procedure well and no complications were encountered. Following the procedure the patient's vital signs were stable. The patient was discharged home in good condition with post-procedural instructions. Time Out: Immediately prior to the procedure, the following was verbally confirmed that there is a signed consent form and that the correct patient, planned procedure, site and side are consistent with documentation and that necessary equipment and/or blood products are available prior to the start of the case. Ultrasound images were saved to the patient's record. Complications: none EBL: <5 cc [facility] Medical History Fluid retention Physical Exam Vital Signs: Last Vital Signs Pulse 92 07/04/24 10:53 BP 117/77 07/04/24 10:53 Pulse Ox 97 07/04/24 10:53 Oxygen Delivery Method Room Air 07/04/24 10:53 BMI result Body Mass Index 34.5 Assessment & Plan Assessment & Plan (1) Bilateral knee pain: Comment: intractable Code(s): M25.561 - Pain in right knee; M25.562 - Pain in left knee Category: Medical Plan Patient is status post left knee GNBs. Patient tolerated procedure well and was discharged home in stable condition with discharge instructions. All questions were answered. We will follow-up via telephone or in clinic to assess response to therapy. A follow-up appointment was made during today's visit. Coding Level of Care Code Procedure Only Diagnoses Bilateral knee pain M25.561; M25.562
[2024-07-04 10:53] VITALS: BP 117/77; PULSE 92; O2SAT 97; BMI 34.5
--- OUTSIDE RECORDS SUMMARY | 2024-07-04 13:45 | XMS_ITS | Clinical Summary ---
Author Organization [facility] Address [address] [place] [address] Care Team Providers Care Glass Furnace Tender Name Role Phone Unavailable Primary Care Provider [...] Plan of Treatment Not on file Insurance [facility] [place] [id number]
--- OUTSIDE RECORDS SUMMARY | 2024-07-04 13:45 | XMS_ITS | Referral Summary ---
Author Organization [facility] Address [address] [place] [address] Care Team Providers Care Collections Technician Name Role Phone Isak Enrique Primary Care Provider [phone] Allergies Active Allergy Reactions Criticality Noted Date Comments Other Other (see comments) 09/10/2021 [place] allergy leading to skin irritation Penicillins Nausea [...] with retropharyngeal abscess. Initially NPO then passed AQUARIUM SPECIALIST for pureed diet on 08/20. - TBW AQUARIUM SPECIALIST to advance diet - trial of [...] fevers. 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 CT imaging findings of??C3-T1 8.1 [...] Not on file Procedures * Due to [place] [employer] law, this organization might not be sharing negative HIV tests. Procedure Name Priority Date/Time Associated Diagnosis Comments BASIC METABOLIC PANEL Routine 08/23/2021 6:43 AM EDT from Last 3 Months or Most Recently Relevant to Health Maintenance Results * Due to [facility] law, this organization might not be sharing negative HIV tests. * (ABNORMAL) Basic Metabolic Panel (08/23/2021 6:43 AM EDT) NA 141 135 - 145 mmol/L 08/23/2021 8:26 AM EDT [facility] K 4.1 3.5 - 5.3 mmol/L 08/23/2021 8:26 AM EDT [facility] Cl 109 97 - 110 mmol/L 08/23/2021 8:26 AM EDT [facility] CO2 23(L) 24 - 32 mmol/L 08/23/2021 8:26 AM EDT [facility] BUN 5(L) 7 - 23 mg/dL 08/23/2021 8:26 AM EDT [facility] Creatinine 0.48(L) 0.50 - 1.20 mg/dL 08/23/2021 8:26 AM EDT [facility] Glucose 77 70 - 99 mg/dL 08/23/2021 8:26 AM EDT [facility] Calcium 8.0(L) 8.7 - 10.7 mg/dL 08/23/2021 8:26 AM EDT [facility] Anion Gap 9 5 - 15 08/23/2021 8:26 AM EDT [facility] eGFR >90 >=90 mL/min/1. 73m2 08/23/2021 8:26 AM EDT [facility] Comment: Estimated Glomerular Filtration [...] León MD LAB BLOOD ORDERABLES Final Result [facility] [address] [place] [address], from Last 3 Months or Most Recently Relevant to Health Maintenance Insurance [facility] [place] [id number] Advance Directives Documents on File Type Date Recorded Patient Animal Care Specialist Expl anation Health Care Proxy 08/17/2021 5:10 PM 08-17 Health Care Proxy 08/17/2021 1:21 PM 08-17 Health Care Proxy 08/17/2021 9:33 AM 08-15 * Full Code (Latest Code Status on File) Date Activated Date Inactivated Comments 08/15/2021 11:09 AM 08/23/2021 9:11 PM * Presumed Full Code Date Activated Date Inactivated Comments 08/15/2021 7:50 AM 08/15/2021 11:09 AM Care Teams Collections Technician Relationship Specialty Start Date End Date Isak Enrique [address] [place] [address] PCP - General Internal Medicine 08/15/21
--- OUTSIDE RECORDS SUMMARY | 2024-07-04 13:45 | XMS_ITS | Clinical Summary ---
Author Organization [facility] Address [address] [place] [address] Care Team Providers Care Vocational Coordinator Name Role Phone Isak Enrique Primary Care Provider [phone] Allergies Active Allergy Reactions Criticality Noted Date Comments Other Other (see comments) 09/10/2021 [place] allergy leading to skin irritation Penicillins Nausea [...] with retropharyngeal abscess. Initially NPO then passed MANAGER UNIT for pureed diet on 08/20. - TBW MANAGER UNIT to advance diet - trial of adult [...] fevers. 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 CT imaging findings of??C3-T1 8.1 [...] complete this topic Procedures * Due to [place] [employer] law, this organization might not be sharing negative HIV tests. Procedure Name Priority Date/Time Associated Diagnosis Comments BASIC METABOLIC PANEL Routine 08/23/2021 6:43 AM EDT from Last 3 Months or Most Recently Relevant to Health Maintenance Results * Due to [place] P[place] law, this organization might not be sharing negative HIV tests. * (ABNORMAL) Basic Metabolic Panel (08/23/2021 6:43 AM EDT) NA 141 135 - 145 mmol/L 08/23/2021 8:26 AM EDT [facility] K 4.1 3.5 - 5.3 mmol/L 08/23/2021 8:26 AM EDT [facility] Cl 109 97 - 110 mmol/L 08/23/2021 8:26 AM EDT [facility] CO2 23(L) 24 - 32 mmol/L 08/23/2021 8:26 AM EDT [facility] BUN 5(L) 7 - 23 mg/dL 08/23/2021 8:26 AM EDT [facility] Creatinine 0.48(L) 0.50 - 1.20 mg/dL 08/23/2021 8:26 AM EDT [facility] Glucose 77 70 - 99 mg/dL 08/23/2021 8:26 AM EDT [facility] Calcium 8.0(L) 8.7 - 10.7 mg/dL 08/23/2021 8:26 AM EDT [facility] Anion Gap 9 5 - 15 08/23/2021 8:26 AM EDT [facility] eGFR >90 >=90 mL/min/1. 73m2 08/23/2021 8:26 AM EDT [facility] Comment: Estimated Glomerular Filtration [...] LAB BLOOD ORDERABLES Final Result [facility] [address] [place] [address], from Last 3 Months or Most Recently Relevant to Health Maintenance Insurance [facility] Advance Directives Documents on File Type Date Recorded Patient Authorization Rep Expl anation Health Care Proxy 08/17/2021 5:10 PM 08-17 Health Care Proxy 08/17/2021 1:21 PM 08-17 Health Care Proxy 08/17/2021 9:33 AM 08-15 * Full Code (Latest Code Status on File) Date Activated Date Inactivated Comments 08/15/2021 11:09 AM 08/23/2021 9:11 PM * Presumed Full Code Date Activated Date Inactivated Comments 08/15/2021 7:50 AM 08/15/2021 11:09 AM Care Teams Vocational Coordinator Relationship Specialty Start Date End Date Isak Enrique [address] [place] [address] PCP - General Internal Medicine 08/15/21
== END 2024-07-04 11:07 | disposition home or self-care (01) ==
LOC: HO.PMCPRC 10:20
PROVIDERS: PCP Internal Medicine; Visit Provider Internal Medicine
DX: M25.561 Pain in right knee (principal); M25.562 Pain in left knee
CPT/HCPCS: 64454

== ENCOUNTER 2024-11-27 16:14 | Emergency (ER) | payer MEDICARE, MEDICAID, SELFPAY ==
--- NOTE | ~2024-11-27 | US_ITS ---
CLINICAL HISTORY: leg edema L> R Bilateral lower extremity venous duplex ultrasound. Study was performed using color and spectral waveform analysis. Comparison: None provided Findings: Visualized deep veins are fully compressible with normal flow and augmentation. No popliteal cysts. No significant adenopathy. Impression: Bilateral lower extremity venous duplex ultrasound negative for DVT This document has been electronically signed by: Clinton Driscoll MD on 11/27/2024 19:34:07
[2024-11-27 16:19] VITALS: BP 112/78; PULSE 96; O2SAT 96
[2024-11-27 16:20] VITALS: PULSE 92; RESP 16; TEMP 36.7; O2SAT 98; BMI 32.8
--- NOTE | 2024-11-27 16:34 | PC.NURSE ---
Pt has strong, palpable, bilateral DP pulses
--- NOTE | 2024-11-27 18:34 | ED.EXTPRO ---
HPI - Extremity Problem General Chief complaint: Extremity Problem Stated complaint: Bilat leg pain and swelling Time Seen by Provider: 11/27/24 18:17 Source: patient Mode of arrival: EMS Limitations: no limitations History of Present Illness ED Provider: HPI Narrative: 64-year-old woman presenting with bilateral lower extremity swelling left worse than right, chills open fall 2 weeks ago landed on her left knee, had an x-ray at urgent care placed on diclofenac and has worsening edema of the left calf but also concerned that 1st more swelling on right side as well, she has a history of dependent leg edema uses furosemide Related Data Home Medications ?Medication ?Instructions ?Recorded ?Confirmed acetaminophen 325 mg tablet 650 mg PO Q4H PRN 03/27/24 07/04/24 cholecalciferol (vitamin D3) 25 25 mcg PO DAILY 03/27/24 07/04/24 mcg (1,000 unit) capsule diclofenac sodium 1 % topical gel 2 g topical QID 03/27/24 07/04/24 eplerenone 50 mg tablet (Inspra) 50 mg PO DAILY 03/27/24 07/04/24 fluticasone propionate 50 1 spray intranasal DAILY 03/27/24 07/04/24 mcg/actuation nasal spray,suspension (Allergy Relief (fluticasone)) furosemide 10 mg/mL oral solution 10 mg PO DAILY 03/27/24 07/04/24 loperamide 2 mg capsule 2 mg PO Q4H PRN 03/27/24 07/04/24 potassium chloride 10 mEq 20 meq PO DAILY 03/27/24 07/04/24 capsule,extended release Previous Rx's ?Medication ?Instructions ?Recorded duloxetine 20 mg capsule,delayed 20 mg PO BID #60 caps 03/27/24 release compress.stocking,knee,reg,med #2 ea 11/27/24 furosemide 20 mg tablet 40 mg (2 x 20 mg) PO DAILY 3 days 11/27/24 #6 tabs Allergies Allergy/AdvReac Type Severity Reaction Status Date / Time citric acid (CITRIC ACID) Allergy Mild RASH Verified 11/27/24 16:29 penicillin V Allergy Unknown Nausea and Verified 11/27/24 16:29 Vomiting Penicillins (PCN) Allergy Unknown NAUSEA & Verified 11/27/24 16:29 VOMITING Review of Systems Constitutional: Constitutional: Reports as per [facility] Past Medical History Medical History Fluid retention Social History Social History Smoked in Last 30 Days: No Use of substances other than those prescribed or required for medical reasons: No Advance Directives: No Advance Directives Information Provided: Yes Do you have a plan to hurt others: No Plan Physical Exam Vital Signs: Vital Signs: Last Vital Signs Temp 98.2 F 11/27/24 19:20 Pulse 88 11/27/24 19:20 Resp 19 11/27/24 19:20 BP 136/77 11/27/24 19:20 Pulse Ox 97 11/27/24 19:20 O2 Del Method Room Air 11/27/24 19:20 BMI result Body Mass Index 32.8 Const: Other: Alert and oriented x4 Not in respiratory distress Examination of both knees full range of motion both ankles full range of motion distal pulses intact, left calf edematous compared to right Achilles tendons intact Medical Decision Making Medical Decision Making MDM Narrative: No evidence of trauma to the joint or septic joint no evidence for cellulitis, this is not unlikely related to renal kidney failure, we will obtain ultrasound to make sure does not have a DVT after a fall Differential Diagnosis Differential Diagnoses: The differential diagnosis associated with the presentation includes Arterial insufficiency, venous insufficiency, cellulitis, DVT Independent Interpretation I performed an independent interpretation of an: Ultrasound (neg DVT) Discharge Plan Discharge Clinical Impression: Bilateral leg edema Patient Disposition: Home, Self-Care Instructions: Leg Edema (ED) Additional Instructions: No blood clots in your legs Exam is consistent with swelling after an injury as well as dependent leg edema, treatment is keeping her legs elevated when not in use, using compression stockings, I can provide you with a few doses of furosemide for the next 3 days if you are going to an event and it may help with some of the swelling Prescriptions: New furosemide 20 mg tablet 40 mg PO DAILY 3 Days Qty: 6 0RF (DME) compress.stocking,knee,reg,med Misc See Rx Instructions .Route Qty: 2 0RF Rx Instructions: As directed No Action acetaminophen 325 mg tablet 650 mg PO Q4H PRN diclofenac sodium 1 % gel 2 g topical QID Rx Instructions: apply to single elbow, wrist or hand; for hand includes palm/fingers/back of hand fluticasone propionate [Allergy Relief (fluticasone)] 50 mcg/actuation spray,suspension 1 spray intranasal DAILY Rx Instructions: administer into each nostril furosemide 10 mg/mL solution 10 mg PO DAILY eplerenone [Inspra] 50 mg tablet 50 mg PO DAILY loperamide 2 mg capsule 2 mg PO Q4H PRN Rx Instructions: administer after each loose stool until symptoms controlled; do not exceed 8 mg per 24 hrs potassium chloride 10 mEq capsule, extended release 20 meq PO DAILY cholecalciferol (vitamin D3) 25 mcg (1,000 unit) capsule 25 mcg PO DAILY duloxetine 20 mg capsule,delayed release(DR/EC) 20 mg PO BID Qty: 60 0RF Print Language: Occitan
--- OUTSIDE RECORDS SUMMARY | 2024-11-27 18:54 | XMS_ITS | Referral Summary ---
Author Organization [facility] Address [address] [place] [address] Care Team Providers Care Shale Planer Operator Name Role Phone Isak Enrique Primary Care Provider [phone] Allergies Active Allergy Reactions Criticality Noted Date Comments Other Other (see comments) 09/10/2021 [place] allergy leading to skin irritation Penicillins Nausea [...] with retropharyngeal abscess. Initially NPO then passed WELDER PIPE MAKING for pureed diet on 08/20. - TBW WELDER PIPE MAKING to advance diet - trial of adult [...] fevers. 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 CT imaging findings of C3-T1 8.1 x 3.7cm retropharyngeal abscess with phlegmon extension within the posterior mediastinum to the level of the aortic arch. Taken to the OR 08/15 by ENT for fiberoptic laryngoscopy with findings of narrow but patent airway, diffuse hypopharyngeal swelling on right, no intervention performed. Admitted to ICU for medical mng and airway watch. 08/19 Bedside laryngoscopy w/ worsening R pharyngeal wall edema and less R vocal cord movement. Repeat CT chest/soft tissue face with No interval [...] time; signed off - ENT: Following and rec no steroids as may mask condition and cont abx. Hypokalemia 08/15/2021 Assessment & Plan (08/21/2021 6:24 PM EDT): Patient with intermittent hypokalemia. Supplemented as needed. Leukocytosis 08/15/2021 Immunizations Immunization Administration Dates Next Due Covid-19 Monovalent Vaccine, [...] 88 08/23/2021 5:59 AM EDT Temperature 36.8 C (98.2 F) 08/23/2021 5:59 AM EDT Respiratory Rate 18 08/23/2021 5:59 AM EDT Oxygen Saturation 97% 08/23/2021 5:59 AM EDT Inhaled Oxygen Concentration - - Weight 93.9 kg (207 lb 0.2 oz) 08/22/2021 5:42 A M EDT Height 160 cm (5' 2.99 ) 08/15/2021 12:00 PM EDT Body Mass Index 36.68 08/15/2021 12:00 PM EDT Plan of Treatment Not on file Procedures * Due to [place] state law, this organization might not be sharing negative HIV tests. Procedure Name Priority Date/Time Associated Diagnosis Comments BASIC METABOLIC PANEL Routine 08/23/2021 6:43 AM EDT from Last 3 Months or Most Recently Relevant to Health Maintenance Results * Due to [place] state law, this organization might not be sharing negative HIV tests. * (ABNORMAL) Basic Metabolic Panel (08/23/2021 6:43 AM EDT) NA 141 135 - 145 mmol/L 08/23/2021 8:26 AM EDT [facility] K 4.1 3.5 - 5.3 mmol/L 08/23/2021 8:26 AM EDT [facility] Cl 109 97 - 110 mmol/L 08/23/2021 8:26 AM EDT [facility] CO2 23(L) 24 - 32 mmol/L 08/23/2021 8:26 AM EDT [facility] BUN 5(L) 7 - 23 mg/dL 08/23/2021 8:26 AM EDT [facility] Creatinine 0.48(L) 0.50 - 1.20 mg/dL 08/23/2021 8:26 AM EDT [facility] Glucose 77 70 - 99 mg/dL 08/23/2021 8:26 AM EDT [facility] Calcium 8.0(L) 8.7 - 10.7 mg/dL 08/23/2021 8:26 AM EDT [facility] Anion Gap 9 5 - 15 08/23/2021 8:26 AM EDT [facility] eGFR >90 >=90 mL/min/1. 73m2 08/23/2021 8:26 AM EDT [facility] Comment: Estimated Glomerular Filtration [...] MD LAB BLOOD ORDERABLES Final Result [email or web address] [address] [place] [address], [place] from Last 3 Months or Most Recently Relevant to Health Maintenance Insurance [facility] Advance Directives Documents on File Type Date Recorded Patient Vice President Of Product Marketing [facility] Proxy 08/17/2021 5:10 PM 08-17 Health Care Proxy 08/17/2021 1:21 PM 08-17 Health Care Proxy 08/17/2021 9:33 AM 08-15 * Full Code (Latest Code Status on File) Date Activated Date Inactivated Comments 08/15/2021 11:09 AM 08/23/2021 9:11 PM * Presumed Full Code Date Activated Date Inactivated Comments 08/15/2021 7:50 AM 08/15/2021 11:09 AM Care Teams Shale Planer Operator Relationship Specialty Start Date End Date Isak Enrique [address] [place] [address] PCP - General Internal Medicine 08/15/21
[2024-11-27 19:20] VITALS: BP 136/77; PULSE 88; RESP 19; TEMP 36.8; O2SAT 97
[2024-11-27 19:42] VITALS: BP 136/77; PULSE 88; RESP 19; TEMP 36.8; O2SAT 97
== END 2024-11-27 19:56 | disposition home or self-care (01) ==
PROVIDERS: Emergency Provider Emergency Medicine; PCP Internal Medicine
DX: R60.0 Localized edema (principal)
CPT/HCPCS: 93970; 99284

== ENCOUNTER → 2024-11-27 18:25 | Outpatient (BNV) | payer MEDICARE, MEDICAID, SELFPAY | PROVIDERS: Emergency Provider Emergency Medicine; PCP Internal Medicine; Visit Provider Radiology Diagnostic Radiology | DX: R60.0 Localized edema (principal) | CPT/HCPCS: 93970 ==

== ENCOUNTER 2025-01-01 09:02 | Outpatient (AMB) | payer MEDICARE, MEDICAID, SELFPAY ==
--- NOTE | 2025-01-01 09:03 | A.OFFVIS_ITS ---
Vital Signs 01/01/25 09:04 BP 136/86 Blood Pressure Location Rt brachial Position Sitting Respiration 16 Pulse 94 Pulse Source Pulse Oximeter Pulse Oximetry (%) 96 Oxygen Delivery Method Room Air Intake Visit Reasons: Procedure discussion Design Release Engineer Required: No Accompanied by: Self / Same As Patient Allergies citric acid (CITRIC ACID) Allergy (Mild, Verified 01/01/25 09:08) RASH penicillin V Allergy (Unknown, Verified 01/01/25 09:08) Nausea and Vomiting Penicillins (PCN) Allergy (Unknown, Verified 01/01/25 09:08) NAUSEA & VOMITING HPI Comments Details: The patient is a 64-year-old female presenting with chronic back pain. The back pain has been persistent and is associated with a history of injections, which provided relief in the past. The patient reports difficulty with mobility and frequent falls, necessitating the use of a cane. Most recent injections were several months ago, she describes them as trigger point injections to her lower back. She denies any fluoroscopy guided injections to her facet joints. Arthritis has been diagnosed, with pain radiating down her legs, significantly affecting her daily activities. She notices bilateral knee pain, has had some recent falls due to her knees giving out. She ambulates with the use of a cane. She denies back pain that radiates down her legs to her feet or shooting, stabbing, electrical pains down the legs. Patient completed physical therapy several months ago without improvement. Patient has tried [id number] medications, nonsteroidal anti-inflammatory medications, prescription medications all without improvement of her symptoms. - Onset: Chronic back pain with persistent symptoms - Quality: Pain radiates down the thighs - Location: Primarily in the back and knees - Exacerbating factors: Mobility issues and falls - Relieving factors: Nerve blocks and steroid injections - Affect: Pain impacts mobility and daily activities - Analgesia: Uses Tylenol and nerve blocks for pain relief - Adverse Effects: Tylenol causes sleepiness - Activities of Daily Living: Falls frequently, uses a cane for support - Aberrant Drug Related Behaviors: None reported [facility] Medical History Fluid retention Review of Systems Const Details: - Musculoskeletal: Reports chronic back pain and knee pain, denies other joint pain - Neurological: Reports frequent falls, denies dizziness or balance issues - General: Reports obesity, denies recent weight loss Physical Exam Exam Exam: General: awake, alert, oriented. Answers questions appropriately. Fully engaged in examination. Skin: warm, dry, intact HEENT: Normocephalic. Hearing intact. Cardiac: External chest normal in appearance. Respiratory: No cough, audible wheezing or stridor. Abdomen: without gross distension. MS: No obvious swelling or deformities. Tenderness over midline lumbar vertebrae and lumbar paraspinal muscles Facet loading positive SLR negative bilaterally Nontender over bilateral PSIS Neurological: Oriented to person, place, time and situation. Thought process int act. Ambulates with the use of a cane Psychiatric: Appropriate mood and affect. Good judgment and insight. Vital Signs: Last Vital Signs Pulse 94 01/01/25 09:04 Resp 16 01/01/25 09:04 BP 136/86 01/01/25 09:04 Pulse Ox 96 01/01/25 09:04 Oxygen Delivery Method Room Air 01/01/25 09:04 Results Reviewed Results Reviewed: 03/2024 XR LS FINDINGS: Transitional anatomy with partial sacralization of L5 on the left. The vertebral body heights are preserved. There is grade 1 anterolisthesis of L3 on L4 and L4 on L5. Moderate multilevel degenerative disc disease greatest at L3-S1. Facet arthropathy in the lower lumbar spine. Partially visualized bilateral hip prostheses. IMPRESSION: 1. Transitional anatomy with partial sacralization of L5 on the left. 2. Moderate multilevel degenerative disc disease greatest at L3-S1. 03/2024 XR/XR knee RT 3V FINDINGS: No fracture or joint effusion. Alignment is anatomic. Joint spaces are moderately narrowed with bony spurring, greatest in the patellofemoral and lateral compartment. No abnormal soft tissue calcification. IMPRESSION: Moderate degenerative change in the right knee. 03/2024 XR/XR knee LT 3V FINDINGS: No fracture or joint effusion. Alignment is anatomic. Advanced degenerative changes in the lateral compartment with complete cartilage space loss, subchondral sclerosis and bulky spurring. Moderate degenerative change in the patellofemoral and medial compartment. No abnormal soft tissue calcification. IMPRESSION: Advanced degenerative changes in the left knee, greatest in the lateral compartment. Assessment & Plan Assessment & Plan (1) Lumbar spondylosis: Code(s): M47.816 - Spondylosis without myelopathy or radiculopathy, lumbar region Category: Medical (2) Degenerative disc disease, lumbar: Code(s): M51.369 - Other intervertebral disc degeneration, lumbar region without mention of lumbar back pain or lower extremity pain Category: Medical Plan The plan includes scheduling diagnostic nerve blocks for the patient's lower back to confirm the source of pain and determine the effectiveness of potential treatments. If the diagnostic blocks provide relief, radiofrequency ablation may be considered to provide longer-term pain management. The patient is advised to continue using Tylenol for pain relief, while being cautious of its sedative effects. The patient is encouraged to maintain dietary modifications to address obesity, focusing on reducing soda and ice cream consumption. Follow-up appointments will be scheduled based on the outcome of the diagnostic procedures and insurance approval timelines. Will schedule for fluoroscopy guided diagnostic bilateral L3-L4 DR L5 medial branch blocks with local anesthetic Patient was informed and verbally consented to the use of an ambient scribe for clinic note documentation during this visit. Patient Instructions: - Continue taking Tylenol as needed for pain, but be aware of its sedative effects. - Maintain dietary changes by reducing soda and ice cream intake. - Await contact for scheduling of diagnostic nerve blocks. - Follow up with the clinic as advised based on procedure outcomes and insurance approval. Coding Level of Care Code Est Pt Level 3 (00825) Complex EM visit Add On G2211 Diagnoses Lumbar spondylosis M47.816 Degenerative disc disease, lumbar M51.369
[2025-01-01 09:04] VITALS: BP 136/86; PULSE 94; RESP 16; O2SAT 96
--- OUTSIDE RECORDS SUMMARY | 2025-01-01 09:29 | XMS_ITS | Referral Summary ---
Author Organization [facility] Address [address] [place] [address] Care Team Providers Care Car Repairer Pullman Name Role Phone Isak Enrique Primary Care Provider [phone] Allergies Active Allergy Reactions Criticality Noted Date Comments Other Other (see comments) 09/10/2021 [place] allergy leading to skin irritation Penicillins Nausea [...] with retropharyngeal abscess. Initially NPO then passed PLAYGROUND SUPERVISOR for pureed diet on 08/20. - TBW PLAYGROUND SUPERVISOR to advance diet - trial of adult [...] fevers. 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 CT imaging findings of C3-T1 [...] on file Procedures * Due to [place] state law, this organization might not be sharing negative HIV tests. Procedure Name Priority Date/Time Associated Diagnosis Comments BASIC METABOLIC PANEL Routine 08/23/2021 6:43 AM EDT from Last 3 Months or Most Recently Relevant to Health Maintenance Results * Due to [place] state law, this organization might not be sharing negative HIV tests. * (ABNORMAL) Basic Metabolic Panel (08/23/2021 6:43 AM EDT) NA 141 135 - 145 mmol/L 08/23/2021 8:26 AM EDT [facility] K 4.1 3.5 - 5.3 mmol/L 08/23/2021 8:26 AM EDT [facility] Cl 109 97 - 110 mmol/L 08/23/2021 8:26 AM EDT [facility] CO2 23(L) 24 - 32 mmol/L 08/23/2021 8:26 AM EDT [facility] BUN 5(L) 7 - 23 mg/dL 08/23/2021 8:26 AM EDT [facility] Creatinine 0.48(L) 0.50 - 1.20 mg/dL 08/23/2021 8:26 AM EDT [facility] Glucose 77 70 - 99 mg/dL 08/23/2021 8:26 AM EDT [facility] Calcium 8.0(L) 8.7 - 10.7 mg/dL 08/23/2021 8:26 AM EDT [facility] Anion Gap 9 5 - 15 08/23/2021 8:26 AM EDT [facility] eGFR >90 >=90 mL/min/1. 73m2 08/23/2021 8:26 AM EDT [facility] Comment: Estimated Glomerular Filtration [...] MD LAB BLOOD ORDERABLES Final Result [facility] [address] [place] [address], [place] from Last 3 Months or Most Recently Relevant to Health Maintenance Insurance [facility] Advance Directives Documents on File Type Date Recorded Patient Ore Crushing Dust Collector [facility] Proxy 08/17/2021 5:10 PM 08-17 Health Care Proxy 08/17/2021 1:21 PM 08-17 Health Care Proxy 08/17/2021 9:33 AM 08-15 * Full Code (Latest Code Status on File) Date Activated Date Inactivated Comments 08/15/2021 11:09 AM 08/23/2021 9:11 PM * Presumed Full Code Date Activated Date Inactivated Comments 08/15/2021 7:50 AM 08/15/2021 11:09 AM Care Teams Car Repairer Pullman Relationship Specialty Start Date End Date Isak Enrique [address] [place] [address] PCP - General Internal Medicine 08/15/21
--- OUTSIDE RECORDS SUMMARY | 2025-01-01 09:29 | XMS_ITS | Clinical Summary ---
Author Organization [facility] Address [address] [place] [address] Care Team Providers Care Executive Director Contract Shop Name Role Phone Unavailable Primary Care Provider [...] Plan of Treatment Not on file Insurance [facility] [place] [id number]
--- OUTSIDE RECORDS SUMMARY | 2025-01-01 09:29 | XMS_ITS | Clinical Summary ---
Author Organization [facility] Address [address] [place], [place] [address] Phone Care Team Providers Care Factory Maintenance Technician Name Role Phone Isak Enrique MD Primary Care Provider [phone] Allergies Active Allergy Reactions Criticality Noted Date Comments Citric Acid Rash Low 01/09/2023 Penicillins Nausea Only 08/14/2021 Tolerated piperacillin/tazobactam 08/15/21 Medications acetaminophen (TYLENOL) 500 MG tablet Take 500 mg by mouth every 6 (six) hours as needed. Active clobetasol (TEMOVATE) 0.05 % cream As needed 3 Active VASCULERA 630 mg Tab Take 1 tablet by mouth. As needed 3 Active eplerenone (INSPRA) 50 MG tablet Take 50 mg by mouth daily. 3 Active furosemide (LASIX) 40 MG tablet Take 80 mg by mouth 2 (two) times a day. Active furosemide (LASIX) 10 mg/mL injection 60 mg. Every 3 weeks 3 Active hydrOXYzine (ATARAX) 25 MG tablet TAKE 1 TABLET BY MOUTH EVERY DAY AT BEDTIME NEEDED FOR ITCHING 3 Active potassium chloride (MICRO-K) 10 mEq CR capsule Take 2 capsules by mouth every morning. 3 Active triamcinolone acetonide 0.1 % cream APPLY TO TRUNK, ARMS OR LEGS TWICE DAILY, DECREASE SYMPTOMS IMPROVE 3 Active ammonium lactate (LAC-HYDRIN) 12 % lotion Apply topically to the affected area as needed for dry skin. Active magnesium chloride 64 mg TbEC Take by mouth daily. 400-600 mg 2 tabs a day Active CALCIUM ORAL Take by mouth. Ac tive cholecalciferol , vitamin D3, (VITAMIN D3) 25 mcg (1,000 unit) capsule Take 1,000 Units by mouth daily. Active TURMERIC ORAL Take by mouth daily. Active Active Problems Problem Noted Date Diagnosed Date Chronic midline back pain 12/20/2024 Class 2 obesity due to exces s calories without serious comorbidity with body mass index (BMI) of 35.0 to 35.9 in adult 06/27/2024 Assessment & Plan (12/20/2024 3:46 PM EDT): Continue diligent portion control to bring her body weight as close as possible to ideal range for her height. Limit concentrated sugars, saturated fats and calories in the diet. Keep well-hydrated. If unable to achieve expected goal consider formal dietary/nutritional support. Assessment & Plan (10/04/2024 12:15 PM EDT): Continue diligent portion control to bring her body weight as close as possible to ideal range for her height. Limit concentrated sugars, saturated fats and calories in the diet. Keep well-hydrated. If unable to achieve expected goal consider formal dietary/nutritional support. Assessment & Plan (07/22/2024 9:40 AM EST): Continue diligent portion control in view of gaining 10 pounds from 198 on 02/19/2024 up to 200 today. Limit concentrated sugars, saturated fats and calories in the diet. Keep well-hydrated. If unable to achieve expected goal consider formal dietary/nutritional support. Primary osteoarthritis involving multiple joints 02/12/2023 Assessment & Plan (12/20/2024 3:46 PM EDT): Continue joint protection, energy conservation. Gentle, regular exercise routine. Avoid falls, injuries, overuse. Well fitting supportive shoes for daily walking. Assessment & Plan (10/04/2024 11:55 AM EDT): Continue joint protection, energy conservation. Gentle, regular exercise routine. Avoid falls, injuries, overuse. Well fitting supportive shoes for daily walking. Keep body weight in ideal range for her height. Procedure: After an informed written consent, under sterile conditions I have injected 80 mg Kenalog into RIGHT DELTOID MUSCLE uneventfully. Provider: Kathy Castro MD Patient: Ash Soriano : 1960 Date: 10/04/2024 Assessment & Plan (06/27/2024 2:44 PM EST): Continue joint protection, energy conservation. Gentle, regular exercise routine. Avoid falls, injuries, overuse. Well fitting supportive shoes for daily walking. Keep body weight in ideal range for her height. Procedure: After an informed written consent, under sterile conditions I have injected 80 mg Kenalog into RIGHT DELTOID MUSCLE uneventfully. Provider: Kathy Castro MD Patient: Ash Soriano : 1960 Date: 06/27/2024 Assessment & Plan (02/19/2024 11:21 AM EDT): Continue joint protection, energy conservation. Gentle, regular exercise routine. Avoid falls, injuries, overuse. Well fitting supportive shoes for daily walking. Keep body weight in ideal range for her height. Procedure: After an informed written consent, under sterile conditions I have injected 80 mg Kenalog into RIGHT UPPER OUTER BUTTOCK QUADRANT uneventfully. Provider: Kathy Castro MD Patient: Ash Soriano : 1960 Date: 02/19/2024 Assessment & Plan (11/20/2023 9:17 AM EDT): Osteoarthritis in multiple joints with stiffness but no swelling. Gave her an intramuscular injection of triamcinolone 80 mg which will relieve her symptoms for at least 4 months. Assessment & Plan (09/18/2023 4:59 PM EDT): Osteoarthritis in multiple joints with stiffness but no swelling. Advised daily physical activity and weight loss. Gave her an intramuscular injection of triamcinolone 80 mg to reduce her stiffness. She should try Tylenol [address] of oral NSAIDs. Assessment & Plan (04/18/2023 10:36 PM EST): Osteoarthritis in multiple joints with stiffness and gelling. She has no warm and swollen joints. Gave her an intramuscular injection of triamcinolone 60 mg which should relieve her stiffness and pain for several months. He can continue with Tylenol 650 mg as needed. Assessment & Plan (02/12/2023 5:34 PM EDT): Degenerative osteoarthritis in multiple joints with stiffness but no swelling or effusion. Continue with Tylenol 650 mg as needed. Gave her an intramuscular injection of corticosteroids which should control her stiffness and pain for several months. Encounters Date Type Department Care Team Description 12/20/2024 3:00 PM EDT Office Visit [facility] Rheumatology [address] [place] [address] Kathy Castro MD Primary osteoarthritis involving multiple joints (Primary Dx); Chronic midline low back pain with bilateral sciatica; Class 2 obesity due to excess calories without serious comorbidity with body mass index (BMI) of 35.0 to 35.9 in adult 12/16/2024 Telephone [facility] Rheumatology [address] [place] [address] Kathy Castro MD Appointment 10/04/2024 11:30 AM EDT Office Visit [facility] Rheumatology [address] [place] [address] Kathy Castro MD Primary osteoarthritis involving multiple joints (Primary Dx); Class 2 obesity due to excess calories without serious comorbidity with body mass index (BMI) of 35.0 to 35.9 in adult from Last 3 Months Family History Medical History Relation Comments Scoliosis Daughter Cancer Father prostate Heart disease Mother Osteoarthritis Mother Scoliosis Mother Relation Status Comments Daughter Alive Father Mother Social History Tobacco Use Types Packs/Day Years Used Date Smoking Tobacco: Never Smokeless Tobacco: Never Tobacco Cessation:Counseling Given: Not Answered Alcohol Use Standard Drinks/Week Comments Not Currently 0 (1 standard drink = 0.6 oz pur e alcohol) Education Answer Date Recorded Are you interested in more education? Not on rolanda e 12/20/2022 Are you concerned about learning? Not on file 12/20/2022 No 12/20/2022 No 12/20/2022 Digital Access Answer Date Recorded No 12/20/2022 No 12/20/2022 Reliable internet access at home? Not on file 12/20/2022 Device with a working camera? Not on file Comments Unknown Sex and Gender Information Value Date Recorded Sex Assigned at Not on file Legal Sex Female 8:45 AM EDT Gender Identity Not on file Sexual Orientation Not on file Last Filed Vital Signs Vital Sign Reading Time Taken Comments Blood Pressure 108/62 12/20/2024 2:38 PM EDT Pulse 90 12/20/2024 2:38 PM EDT Temperature - - Respiratory Rate 16 01/09/2023 4:00 PM EDT Oxygen Saturation 98% 12/20/2024 2:38 PM EDT Inhaled Oxygen Concentration - - Weight 88.5 kg (195 lb) 12/20/2024 2:38 PM EDT w ith shoes Height 160.7 cm (5' 3.27 ) 12/20/2024 2:38 PM ED T Body Mass Index 34.25 12/20/2024 2:38 PM EDT Plan of Treatment Upcoming Encounters Date Type Department Care Team (Late st Contact Info) Description 02/21/2025 11:00 AM EDT Office Visit [facility] Rheumatology [address] [place] [address] Kathy Castro MD [address] [facility], [address] [place] [address] [email or web address] Health Maintenance Due Date Last Done Comments LIPID PANEL 1960 POTASSIUM LEVEL 1959 DEPRESSION SCREENING 1971 HEPATITIS C SCREENING 1977 HIV ONE-TIME SCREENING (18-65 YEARS) 1977 SCREENING FOR DIABETES 1994 MAMMOGRAM 1999 COLOGUARD 2004 COLONOSCOPY 2004 COLORECTAL CANCER SCREENING 2004 FIT TEST 2004 FOBT 2004 SIGMOIDOSCOPY 2004 VIRTUAL COLONOSCOPY 2004 ZOSTER VACCINES (1 of 2) 2009 OSTEOPOROSIS SCREENING INITIAL (ONE-TIME) 2024 COVID-19 VACCINE (8 - 2024-25 season) 2024 03/12/2024, 06/08/2023, 05/13/2022, Additional history exists RSV VACCINE (1 - 1-dose 75+ series) 2034 Adult Td,Tdap Booster 07/16/2034 07/16/2024 PNEUMOCOCCAL VACCINES (50+ years) Completed 07/16/2024 SMOKING STATUS SCREENING (Once After 26 Yrs) Completed 12/20/2024 HEPATITIS A VACCINES Aged Out No long er eligible based on patient's age to complete this topic HIB VACCINES Aged Out No longer eligi ble based on patient's age to complete this topic MENINGOCOCCAL VACCINES (ACWY) Aged Out No longer eligible based on patient's age to complete this topic MENINGOCOCCAL VACCINES (B) Aged Out N o longer eligible based on patient's age to complete this topic Medical Devices Not on file Insurance MEDICARE PART A & B [place]IC[place] PPO BLUE [place] [address] [address] [place] [address] MEDICARE PART A & B [place] BLUE REPLACEMENT [facility] MEDICARE PART A & B [place] BLUE REPLACEMENT [facility] MEDICARE PART A & B [facility] MEDICARE PPO BLUE REPLACEMENT [facility] MEDICARE PART A & B [facility] MEDICARE PPO BLUE REPLACEMENT [place] MEDICARE PART A & B [place] [facility] Care Teams Factory Maintenance Technician Relationship Specialty Start Date End Date Isak Enrique MD [address] [place] [id number] PCP - General Internal Medicine 04/13/23 Additional Source Comments The information contained in this document represents components of the legal health record. It is not the complete legal health record.[facility]
== END 2025-01-01 09:22 | disposition home or self-care (01) ==
LOC: HO.PMC 09:02
PROVIDERS: PCP Internal Medicine; Visit Provider Registered Nurse Emergency
DX: M47.816 Spondylosis without myelopathy or radiculopathy, lumbar region (principal); M51.369 Other intervertebral disc degeneration, lumbar region without mention of lumbar back pain or lower extremity pain
CPT/HCPCS: 99213; G2211

== ENCOUNTER → 2025-01-01 09:02 | Outpatient (BNVA) | payer MEDICARE, MEDICAID, SELFPAY | PROVIDERS: PCP Internal Medicine; Visit Provider Registered Nurse Emergency | DX: Z01.818 Encounter for other preprocedural examination (principal); M47.816 Spondylosis without myelopathy or radiculopathy, lumbar region; M51.369 Other intervertebral disc degeneration, lumbar region without mention of lumbar back pain or lower extremity pain | CPT/HCPCS: 99212 ==

== ENCOUNTER 2025-01-15 08:48 | Outpatient (REF) | payer MEDICARE, MEDICAID, SELFPAY ==
--- OUTSIDE RECORDS SUMMARY | 2025-01-16 09:05 | XMS_ITS | Clinical Summary ---
Author Organization [facility] Address [address] [place], [place] [id number] Phone Care Team Providers Care Spd Manager Name Role Phone Isak Enrique MD Primary Care Provider [phone] Allergies Active Allergy Reactions Criticality Noted Date [...] Encounters Date Type Department Care Team Description 01/06/2025 Telephone [facility] Rheumatology [address] [place] [address] Kathy Castro MD Request For Records 12/20/2024 3:00 PM EDT Office Visit [facility] Rheumatology [address] [place] [address] Kathy Castro MD Primary osteoarthritis involving multiple joints (Primary Dx); Chronic midline low back pain with bilateral sciatica; Class 2 obesity due to excess calories without serious comorbidity with body mass index (BMI) of 35.0 to 35.9 in adult 12/16/2024 Telephone [facility] Rheumatology [address] [place] [address] Kathy Castro MD Appointment from Last 3 Months Family History Medical [...] Description 02/21/2025 11:00 AM EDT Office Visit [facility] Rheumatology [address] [place] [address] Kathy Castro MD [address] [facility], [address] [place] [address] [email or web address] Health Maintenance Due Date Last Done Comments LIPID PANEL 1959 POTASSIUM LEVEL 1959 DEPRESSION SCREENING 1971 HEPATITIS C SCREENING 1977 HIV ONE-TIME SCREENING (18-65 YEARS) 1977 SCREENING FOR DIABETES 1994 MAMMOGRAM 1999 COLOGUARD 2004 COLONOSCOPY 2004 COLORECTAL CANCER SCREENING 2004 FIT TEST 2004 FOBT 2004 SIGMOIDOSCOPY 2004 VIRTUAL COLONOSCOPY 2004 ZOSTER VACCINES (1 of 2) 2009 OSTEOPOROSIS SCREENING INITIAL (ONE-TIME) 2024 COVID-19 VACCINE ( season) 2024 03/12/2024, 06/08/2023, 05/13/2022, Additional history [...] [place] PPO [place] [address] [place] [address] MEDICARE PART A & B BL[place] MEDICARE PPO BLUE REPLACEMENT [facility] MEDICARE PART A & B [facility] MEDICARE PPO BLUE REPLACEMENT [facility] MEDICARE PART A & B [facility] MEDICARE PPO BLUE REPLACEMENT [place] MEDICARE PART A & B [facility] MEDICARE PPO BLUE REPLACEMENT [place] MEDICARE PART A & B [place] Care Teams Spd Manager Relationship Specialty Start Date End Date Isak Enrique MD [address] [place] [address] PCP - General Internal Medicine 04/13/23 Additional Source Comments The information contained in this document represents components of the legal health record. It is not the complete legal health record.[facility]
--- OUTSIDE RECORDS SUMMARY | 2025-01-16 09:05 | XMS_ITS | Clinical Summary ---
Author Organization [facility] Address [address] [place] [address] Care Team Providers Care Pediatric Physician Name Role Phone Isak Enrique Primary Care Provider [phone] Allergies Active Allergy Reactions Criticality Noted Date Comments Other Other (see comments) 09/10/2021 [place] allergy leading to skin irritation Penicillins Nausea [...] with retropharyngeal abscess. Initially NPO then passed TECHNICAL WRITER AND EDITOR for pureed diet on 08/20. - TBW TECHNICAL WRITER AND EDITOR to advance diet - trial of adult [...] fevers. 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 CT imaging findings of C3-T1 [...] 2009 Zoster Vaccines (1 of 2) 2009 Pneumococcal Vaccine: 50+ Years (2 of 2 - PCV) 05/04/2015 05/04/2014 Basic Metabolic Panel 08/23/2022 08/23/2021 , 08/22/2021, 08/20/2021, Additional history exists COVID-19 Vaccine ( - season) 2024 04/28/2021, 09/04/2020, 08/07/2020 Alcohol/Substance Use Screening 06/05/2024 Depression Screening and Follow-Up 06/05/2024 Health Care Proxy Review 06/05/2024 Social Drivers of Health Annual Screening 06/05/2024 DTaP,Tdap,and Td Vaccines (2 - Td or Tdap) 06/24/2024 06/24/2014, 06/05/2004 Influenza Vaccine (#1) 2025 , 02/19/2020, 02/19/2020, Additional history exists RSV Vaccine (60+ years old and patients) (1 - 1-dose 75+ series) 2034 Hepatitis B Vaccines Aged Out No long er eligible based on patient's age to complete this topic Procedures * Due to [place] law, this organization might not be sharing negative HIV tests. Procedure Name Priority Date/Time Associated Diagnosis Comments BASIC METABOLIC PANEL Routine 08/23/2021 6:43 AM EDT from Last 3 Months or Most Recently Relevant to Health Maintenance Results * Due to [place] law, this organization might not be sharing negative HIV tests. * (ABNORMAL) Basic Metabolic Panel (08/23/2021 6:43 AM EDT) NA 141 135 - 145 mmol/L 08/23/2021 8:26 AM EDT [facility] K 4.1 3.5 - 5.3 mmol/L 08/23/2021 8:26 AM [employer] [facility] Cl 109 97 - 110 mmol/L 08/23/2021 8:26 AM [facility] [employer] [facility] CO2 23(L) 24 - 32 mmol/L 08/23/2021 8:26 AM [employer] [facility] BUN 5(L) 7 - 23 mg/dL 08/23/2021 8:26 AM [employer] [facility] Creatinine 0.48(L) 0.50 - 1.20 mg/dL 08/23/2021 8:26 AM [email or web address] Glucose 77 70 - 99 mg/dL 08/23/2021 8:26 AM [email or web address] Calcium 8.0(L) 8.7 - 10.7 mg/dL 08/23/2021 8:26 AM [facility] [employer] Anion Gap 9 5 - 15 08/23/2021 8:26 AM [email or web address] eGFR >90 >=90 mL/min/1. 73m2 08/23/2021 8:26 AM [email or web address] Comment: Estimated Glomerular Filtration [...] LAB BLOOD ORDERABLES Final Result [facility] [address] [place] [address], [place] from Last 3 Months or Most Recently Relevant to Health Maintenance Insurance [facility] MCR REPLACE AARP Advance Directives Documents on File Type Date Recorded Patient Commercial Intelligence Manager Expl anation Health Care Proxy 08/17/2021 5:10 PM 08-17 Health Care Proxy 08/17/2021 1:21 PM 08-17 Health Care Proxy 08/17/2021 9:33 AM 08-15 * Full Code (Latest Code Status on File) Date Activated Date Inactivated Comments 08/15/2021 11:09 AM 08/23/2021 9:11 PM * Presumed Full Code Date Activated Date Inactivated Comments 08/15/2021 7:50 AM 08/15/2021 11:09 AM Care Teams Pediatric Physician Relationship Specialty Start Date End Date Isak Enrique [address] [place] [address] PCP - General Internal Medicine 08/15/21
--- OUTSIDE RECORDS SUMMARY | 2025-01-16 09:05 | XMS_ITS | Clinical Summary ---
Author Organization [facility] Address [address] [place] [address] Care Team Providers Care Senior Escrow Officer Name Role Phone Unavailable Primary Care Provider [...] Plan of Treatment Not on file Insurance [facility] [place] [id number]
== END 2025-01-15 08:49 | disposition home or self-care (01) ==
LOC: HO.HOSX 08:48
PROVIDERS: Visit Provider Physician Assistant
DX: Z13.89 Encounter for screening for other disorder (principal)

== ENCOUNTER 2025-02-27 06:28 | Outpatient (REF) | payer MEDICARE, MEDICAID, SELFPAY ==
--- NOTE | ~2025-02-27 | FL_ITS ---
EXAMINATION: FL GUIDANCE ONLY HISTORY: M25.561 - Pain in right knee COMPARISON: None available. TECHNIQUE: Fluoroscopy time: 20 seconds. Cumulative Dose: 3.0 mGy. DAP: 53.79 uGym2 Images: 2. FINDINGS: Fluoroscopic spot films of the lumbar spine in the AP projection demonstrate needles and contrast material in the regions of the bilateral L3-4, L4-5, and L5-S1 facet joints. FL/FL guidance in treatment room IMPRESSION: Fluoroscopy during procedure. Please see procedure report for additional information. Electronically signed by: Tam Slater MD 02/27/2025 02:28 PM EDT
--- OUTSIDE RECORDS SUMMARY | 2025-02-27 06:30 | XMS_ITS | Clinical Summary ---
Author Organization [facility] Address [address] [place] [address] Care Team Providers Care Pershing Missile Crewmember Name Role Phone Unavailable Primary Care Provider [...] Plan of Treatment Not on file Insurance [facility] [place] [id number]
--- OUTSIDE RECORDS SUMMARY | 2025-02-27 06:30 | XMS_ITS | Clinical Summary ---
Author Organization [facility] Address [address] [place], [place] [id number] Phone Care Team Providers Care Family Worker Name Role Phone Isak Enrique MD Primary Care Provider Allergies Active Allergy Reactions Criticality Noted Date [...] Diagnosed Date Chronic midline back pain 12/20/2024 Assessment & Plan (01/19/2025 11:49 AM EDT): Avoid repetitive stooping, bending, sudden turns, heavy lifting. Use warm pack versus warm shower prior to gentle, regular ROM, stretching and muscle strengthening exercises-examples of exercises with pictures and detailed instructions provided for home use today. She may benefit from warm pool therapy such as at [facility] in [place], [place] Class 2 obesity due to exces s calories without serious comorbidity with body mass index (BMI) of 35.0 to 35.9 in adult 06/27/2024 Assessment & Plan (01/19/2025 11:49 AM EDT): Congratulations on losing 5 pounds from 200 on 10/04/2024 down to 195 today and keep it off. Continue diligent portion control to bring her [...] Type Department Care Team Description 01/06/2025 Telephone [facility] Rheumatology [address] [place] [address] Kathy Castro MD Request For Records 12/20/2024 3:00 PM EDT Office Visit [facility] Rheumatology [address] [place] [address] Kathy Castro MD Primary osteoarthritis involving multiple joints (Primary Dx); Chronic midline low back pain with bilateral sciatica; Class 2 obesity due to excess calories without serious comorbidity with body mass index (BMI) of 35.0 to 35.9 in adult 12/16/2024 Telephone [facility] Rheumatology [address] [place] [address] Kathy Castro MD Appointment from Last 3 [...] 12/20/2024 2:38 PM EDT Plan of Treatment Health Maintenance [...] 2) 2009 OSTEOPOROSIS SCREENING INITIAL (ONE-TIME) 2024 INFLUENZA VACCINE (#1) 2025 , 04/15/2023, 05/13/2022, Additional history exists COVID-19 VACCINE ( - 2023-25 season) 2025 03/12/2024, 06/08/2023, 05/13/2022, Additional history exists RSV [...] file Insurance MEDICARE PART A & B [facility] MEDICARE PPO [place] [address] [place] [address] MEDICARE PART A & B [place] BLUE REPLACEMENT [facility] MEDICARE PART A & B [place] MEDIC[place] PPO BLUE [facility] MEDICARE PART A & B [facility] MEDICARE PPO BLUE REPLACEMENT [facility] MEDICARE PART A & B [facility] MEDICARE PPO BLUE REPLACEMENT [place] MEDICARE PART A & B [place] MED[place] BL[facility] Care Teams Family Worker Relationship Specialty Start Date End Date Isak Enrique MD [address] [place] [id number] PCP - General Internal Medicine 04/13/23 Additional Source Comments The information contained in this document represents components of the legal health record. It is not the complete legal health record.[facility]
--- OUTSIDE RECORDS SUMMARY | 2025-02-27 06:30 | XMS_ITS | Encounter Summary ---
Author Organization [facility] Address [address] [place] [address] Phone Care Team Providers Care Grab Jack Worker Name Role Phone Isak Enrique MD Primary Care Provider [phone] Encounter Details Date Type Department Care Team (Late st Contact Info) Description 07/11/2023 Telephone [facility] Rheumatology [address] [place] [address] Froylan Saenz MD Social History Tobacco Use Types Packs/Day Years Used Date Smoking Tobacco: Never Smokeless Tobacco: Never Alcohol Use Standard Drinks/Week Comments Not Currently [...] on file Sexual Orientation Not on file documented as of this encounter Plan of Treatment Not on file documented as of this encounter Visit Diagnoses Not on filedocumented in this encounter Care Teams Grab Jack Worker Relationship Specialty Start Date End Date Isak Enrique MD [address] [place] [id number] PCP - General Internal Medicine 04/13/23 documented as of this encounter Additional Source Comments The information contained in this document represents components of the legal health record. It is not the complete legal health record.[facility]
--- OUTSIDE RECORDS SUMMARY | 2025-02-27 06:30 | XMS_ITS | Encounter Summary ---
Author Organization [facility] Address [address] [place] [address] [address] [place] [address] Phone Care Team Providers Care Bridge Teacher Name Role Phone Isak Enrique MD Primary Care Provider [phone] Reason for Visit * Reason Onset Date Comments Appointment 12/16/2024 Encounter Details Date Type Department Care Team (Late st Contact Info) Description 12/16/2024 Telephone [facility] [employer] [facility] Rheumatology [address] [place] [address] Kathy Castro MD [address] [facility], [address] [place] [address] [email or web address] Appointment Social History Tobacco Use Types Packs/Day Years [...] on file documented as of this encounter Progress Notes * NormanViji aparicio LPN - 12/16/2024 10:13 AM EDT Patient has pain that is radiating down her leg she is using roberto Appt given for monday * Gwendolyn Cutler - 12/16/2024 10:03 AM EDT Pt called asking to be seen before 02/21/2025 pt is in a lot of pain when she gets up. Pt stated that this is effecting her daily jamieson Central Support Dietary Clerk (Please do not reply to this user; this inbox is not monitored.) Thank you. documented in this encounter Plan of Treatment Not on file documented as of this encounter Visit Diagnoses Not on filedocumented in this encounter Care Teams Bridge Teacher Relationship Specialty Start Date End Date Isak Enrique MD [address] [place] [id number] PCP - General Internal Medicine 04/13/23 documented as of this encounter Additional Source Comments The information contained in this document represents components of the legal health record. It is not the complete legal health record.[facility]
--- OUTSIDE RECORDS SUMMARY | 2025-02-27 06:30 | XMS_ITS | Clinical Summary ---
Author Organization [facility] Address [address] [place] [address] Care Team Providers Care Spanish Tutor Name Role Phone Isak Enrique Primary Care Provider [phone] Allergies Active Allergy Reactions Criticality Noted Date Comments Other Other (see comments) 09/10/2021 [place] allergy leading to skin irritation Penicillins Nausea [...] with retropharyngeal abscess. Initially NPO then passed INSURANCE CLAIMS ASSISTANT for pureed diet on 08/20. - TBW INSURANCE CLAIMS ASSISTANT to advance diet - trial of adult [...] fevers. 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 CT imaging findings of [...] 08/23/2021 , 08/22/2021, 08/20/2021, Additional history exists Alcohol/Substance Use Screening 06/05/2024 Depression Screening and Follow-Up 06/05/2024 Health Care Proxy Review 06/05/2024 Social Drivers of Health Annual Screening 06/05/2024 DTaP,Tdap,and Td Vaccines (2 - Td or Tdap) 06/24/2024 06/24/2014, 06/05/2004 COVID-19 Vaccine (4 - season) 2025 04/28/2021, 09/04/2020, 08/07/2020 Influenza Vaccine (#1) 2025 , 02/19/2020, 02/19/2020, Additional history exists RSV Vaccine (60+ years old and patients) (1 - 1-dose 75+ series) 2034 Hepatitis B Vaccines Aged Out No long er eligible based on patient's age to complete this topic Procedures * Due to [place] law, this organization might not be sharing negative HIV tests. Procedure Name Priority Date/Time Associated Diagnosis Comments BASIC METABOLIC PANEL Routine 08/23/2021 6:43 AM EDT from Last 3 Months or Most Recently Relevant to Health Maintenance Results * Due to [place] law, this organization might not be sharing negative HIV tests. * (ABNORMAL) Basic Metabolic Panel (08/23/2021 6:43 AM EDT) NA 141 135 - 145 mmol/L 08/23/2021 8:26 AM EDT [facility] K 4.1 3.5 - 5.3 mmol/L 08/23/2021 8:26 AM [employer] [facility] Cl 109 97 - 110 mmol/L 08/23/2021 8:26 AM [employer] [facility] CO2 23(L) 24 - 32 mmol/L 08/23/2021 8:26 AM [employer] [facility] BUN 5(L) 7 - 23 mg/dL 08/23/2021 8:26 AM [employer] [facility] Creatinine 0.48(L) 0.50 - 1.20 mg/dL 08/23/2021 8:26 AM [facility] Glucose 77 70 - 99 mg/dL 08/23/2021 8:26 AM [facility] Calcium 8.0(L) 8.7 - 10.7 mg/dL 08/23/2021 8:26 AM [employer] [facility] Anion Gap 9 5 - 15 08/23/2021 8:26 AM [facility] eGFR >90 >=90 mL/min/1. 73m2 08/23/2021 8:26 AM [facility] Comment: Estimated Glomerular Filtration [...] [facility] [address] [place] [address], [place] from Last 3 Months or Most Recently Relevant to Health Maintenance Insurance [facility] MCR REPLACE AARP Advance Directives Documents on File Type Date Recorded Patient World History Teacher Expl anation Health Care Proxy 08/17/2021 5:10 PM 08-17 Health Care Proxy 08/17/2021 1:21 PM 08-17 Health Care Proxy 08/17/2021 9:33 AM 08-15 * Full Code (Latest Code Status on File) Date Activated Date Inactivated Comments 08/15/2021 11:09 AM 08/23/2021 9:11 PM * Presumed Full Code Date Activated Date Inactivated Comments 08/15/2021 7:50 AM 08/15/2021 11:09 AM Care Teams Spanish Tutor Relationship Specialty Start Date End Date Isak Enrique [address] [place] [address] PCP - General Internal Medicine 08/15/21
== END 2025-02-27 06:29 | disposition home or self-care (01) ==
LOC: CF 06:28
PROVIDERS: Visit Provider Internal Medicine
DX: M47.816 Spondylosis without myelopathy or radiculopathy, lumbar region (principal); M25.561 Pain in right knee; M25.562 Pain in left knee
CPT/HCPCS: 64493; 64494; J2003; J2795; Q9967

== ENCOUNTER 2025-02-27 09:21 | Outpatient (AMB) | payer MEDICARE, MEDICAID, SELFPAY ==
[2025-02-27 09:29] VITALS: BP 118/76; PULSE 83; RESP 16; O2SAT 99; BMI 32.8
--- NOTE | 2025-02-27 09:29 | MHC.OFFVIS ---
Vital Signs 02/27/25 09:29 Height 5 ft 3 in Weight 185 lb BMI 32.8 BP 118/76 Blood Pressure Location Lt brachial Position Sitting Respiration 16 Pulse 83 Pulse Source Pulse Oximeter Pulse Oximetry (%) 99 Oxygen Delivery Method Room Air Intake Visit Reasons: Bilateral Diagnostic L3-L4-DR L5 MBB Allergies citric acid (CITRIC ACID) Allergy (Mild, Verified 01/01/25 09:08) RASH penicillin V Allergy (Unknown, Verified 01/01/25 09:08) Nausea and Vomiting Penicillins (PCN) Allergy (Unknown, Verified 01/01/25 09:08) NAUSEA & VOMITING HPI HPI Bilateral Diagnostic L3-L4-DR L5 MBB: Details: Patient presents for scheduled procedure. Denies any recent cough, cold, infection, fever or other significant changes in medical history since last office visit. ON LICENSE OF [facility] Medical History Fluid retention Physical Exam Vital Signs: Last Vital Signs Pulse 83 02/27/25 09:29 Resp 16 02/27/25 09:29 BP 118/76 02/27/25 09:29 Pulse Ox 99 02/27/25 09:29 Oxygen Delivery Method Room Air 02/27/25 09:29 BMI result Body Mass Index 32.8 Office Procedures Details: Lumbar Medial Branch Block, BILATERAL L3, L4 medial branches and L5 Dorsal Ramus (2 levels, 3 nerves) After obtaining written consent, pre-procedure blood pressure and pulse were recorded and are in the nursing record for review. The patient was placed in a prone position. The respective lumbosacral area was prepped with chloraprep and draped in sterile fashion. The skin over the target medial branch nerves was anesthetized with 0.5% lidocaine. A 22 gauge 3.5 inch needle was inserted into the target medial branch nerve under fluoroscopic guidance. No paresthesias were elicited with needle placement and aspiration was negative for blood and CSF. Next, 0.2cc of omnipaque 180 was injected to verify positioning in AP and oblique imaging. Next 0.5 ml 0.5% ropivicaine was injected (0.5cc total per level). The identical procedure was performed at the remaining levels. The skin was cleansed and a sterile bandage was applied. Following the procedure the patient's vital signs were stable. The patient tolerated the procedure well and no complications were encountered. Following the procedure the patient's vital signs were stable. The patient was discharged home in good condition with post-procedural instructions. Time Out: Immediately prior to the procedure, the following was verbally confirmed that there is a signed consent form and that the correct patient, planned procedure, site and side are consistent with documentation and that necessary equipment and/or blood products are available prior to the start of the case. Complications: none EBL: <5 cc 98224 - with Fluoroscopy (L3-L4) (bilateral) 74861 - second level with Fluoroscopy (L3-L4-L5) Procedure code (CPT) selection complete Assessment & Plan Assessment & Plan (1) Lumbar spondylosis: Code(s): M47.816 - Spondylosis without myelopathy or radiculopathy, lumbar region Category: Medical Plan Patient is status post bilateral L3, L4 medial branches and L5 dorsal ramus diagnostic blocks. Patient tolerated procedure well and was discharged home in stable condition with discharge instructions. All questions were answered. We will follow-up via telephone or in clinic to assess response to therapy. A follow-up appointment was made during today's visit. Orders: Orders FL guidance in treatment room Today Viji Garcia APRN, COMPANY MARKER M47.816 - Spondylosis without myelopathy or radiculopathy, lumbar region AMB Medial Branch Block - Lumbar/Sacral Today Gorge Shafer MD M47.816 - Spondylosis without myelopathy or radiculopathy, lumbar region Coding Level of Care Code Procedure Only Diagnoses Lumbar spondylosis M47.816 CPT Codes Medial Branch Block Lumbar/Sacral1 - Branch Block Lumb/Sac 1: 77838 - with Fluoroscopy (L3-L4) ([id number]) Medial Branch Block Lumbar/Sacral1 - Branch Block Lumb/Sac 2: 78417 - second level with Fluoroscopy (L3-L4-L5) ([id number])
== END 2025-02-27 10:35 | disposition home or self-care (01) ==
LOC: HO.PMCPRC 09:21
PROVIDERS: Visit Provider Internal Medicine
DX: M47.816 Spondylosis without myelopathy or radiculopathy, lumbar region (principal)
CPT/HCPCS: 64493; 64494